=== PATIENT | male | born 1955 | race Caucasian/White ===

== ENCOUNTER → 2018-04-20 08:02 | Outpatient (CLI) | payer OTHER, SELFPAY ==
--- NOTE | 2018-04-20 | DI.US.S_ITS ---
PROCEDURE: US ABD AORTA ANEURYSM SCREEN INDICATIONS: SCREENING TECHNIQUE: Real time scanning was performed of the aorta and iliac arteries, with image documentation. COMPARISON: None. FINDINGS: Aorta: Proximal aortic diameter measures 2.2 cm. Mid-aorta measures 1.3 cm. Distal aortic diameter is 1.2 cm. Iliac arteries: Right common iliac artery measures 0.7 cm. Left common iliac artery measures 0.6 cm. Incidental note is made of a diffusely nodular liver, with a heterogeneous appearance. IMPRESSION: Negative for aneurysm. Diffuse heterogeneity is noted of the liver, with a nodular appearance. Suspicion for metastatic disease is raised. Followup with liver protocol CT or MRI is now suggested, as clinically appropriate (assuming that there is no contraindication). Note: Findings and recommendations relayed to Dr. Mccabe via office staff, Lora, at 10:45 AM [place] time on April 20, 2018. Dr. Mccabe will call back if there are any questions. Dictated by: Sean Mendoza M.D. on 04/20/2018 at 9:42 Approved by: Sean Mendoza M.D. on 04/20/2018 at 9:46
== END ==
PROVIDERS: PCP Family Medicine; Visit Provider Family Medicine
DX: Z13.6 Encounter for screening for cardiovascular disorders (principal); K76.9 Liver disease, unspecified
CPT/HCPCS: 76706

== ENCOUNTER → 2018-04-26 10:23 | Outpatient (CLI) | payer OTHER, SELFPAY ==
[2018-04-26 11:21] LABS: BUN Creatinine Ratio 25.6 (6-22); Blood Urea Nitrogen 23 mg/dL (9-20); Calcium 9.6 mg/dL (8.4-10.2); Carbon Dioxide 30 mmol/L (22-32); Chloride 95 mmol/L (98-107); Estimated Glomerular Filt Rate > 60.0 mL/min (>60); Glucose 257 mg/dL (80-110); HEMOLYSIS < 15 (0-50); Potassium 4.3 mmol/L (3.4-5.1); Sodium 137 mmol/L (137-145)
== END ==
PROVIDERS: PCP Family Medicine; Visit Provider Family Medicine
DX: K76.89 Other specified diseases of liver (principal)
CPT/HCPCS: 36415; 80048

== ENCOUNTER → 2018-04-28 10:36 | Outpatient (CLI) | payer OTHER, SELFPAY ==
--- NOTE | 2018-04-28 | DI.CT.S_ITS ---
PROCEDURE: CT ABDOMEN WWO PELVIS W INDICATIONS: Liver lesions seen on prior ultrasound. TECHNIQUE: After the administration of oral contrast, 5 mm thick sections acquired from the diaphragms to the iliac crests. After the administration of intravenous contrast, 5 mm thick sections acquired from the diaphragms to the symphysis. 5 mm thick coronal and sagittal reformats were acquired. For radiation dose reduction, the following was used: automated exposure control, adjustment of mA and/or kV according to patient size. COMPARISON: [facility], US, US ABD AORTA ANEURYSM SCREEN, 04/20/2018, 8:26. FINDINGS: Image quality: Excellent. ABDOMEN: Lung bases: There is mild atelectasis or scarring in the lung bases. Heart size is normal. Solid organs: There are innumerable hypoattenuating mass lesions demonstrated throughout the liver with associated peripheral enhancement. In addition, there is also confluent enhancing mass within segment 6 of the inferior right hepatic lobe measuring up to approximately 8.5 x 5.7 cm. The findings are consistent with metastatic disease. Within the head and body of the pancreas, there is a hypoenhancing mass measuring 3.5 x 1.7 x 3.8 cm in dimension with indistinct margins. There is associated distal pancreatic atrophy and distal ductal dilatation measuring up to 0.6 cm. The mass demonstrates encasement and narrowing of the left gastric artery. There is also encasement and narrowing of the splenic vein. The findings are consistent with pancreatic adenocarcinoma. The gallbladder appears within normal limits. Biliary system is non-dilated. Spleen is normal in size and enhancement. No adrenal nodules. Both kidneys are normal in size. No hydronephrosis or nephrolithiasis. Bowel and peritoneum: Stomach, small and large bowel loops are normal in caliber and wall thickness. No free fluid or air. Nodes and vessels: No retroperitoneal or mesenteric adenopathy by size criteria. Aorta and inferior vena are normal in caliber. Miscellaneous: No ventral hernias. PELVIS: Genitourinary: Bladder wall thickness is normal. Miscellaneous: No inguinal hernias or adenopathy. Bones: No suspicious bony lesions. No vertebral body compression fractures. IMPRESSION: 1. Innumerable peripherally enhancing mass lesions demonstrated throughout the liver consistent with metastatic disease. 2. Hypoenhancing pancreatic mass with associated distal pancreatic duct dilatation and atrophy as well as encasement of the left gastric artery and splenic vein. The findings are consistent with pancreatic adenocarcinoma. Findings discussed with Dr. Mccabe on 04/28/18 at 11:55 AM. Dictated by: Carlos Dsouza M.D. on 04/28/2018 at 11:50 Approved by: Carlos Dsouza M.D. on 04/28/2018 at 12:04
== END ==
PROVIDERS: PCP Family Medicine; Visit Provider Family Medicine
DX: K76.89 Other specified diseases of liver (principal); K86.9 Disease of pancreas, unspecified
CPT/HCPCS: 74178; Q9967

== ENCOUNTER → 2018-05-01 09:32 | Outpatient (CLI) | payer OTHER, SELFPAY ==
--- NOTE | 2018-05-01 | DI.CT.S_ITS ---
PROCEDURE: CT CHEST W CON INDICATIONS: PANCREATIC CANCER TECHNIQUE: After the administration of intravenous contrast, 5 mm thick sections acquired from the pulmonary apices to the posterior costophrenic angles. 7 mm thick coronal and sagittal MIP reformats were acquired. For radiation dose reduction, the following was used: automated exposure control, adjustment of mA and/or kV according to patient size. COMPARISON: [facility], CT, CT ABDOMEN WWO PELVIS W, 04/28/2018, 10:46. FINDINGS: Image quality: Excellent. Lungs and pleura: Scattered subsegmental scarring/atelectasis. No acute consolidation. No pleural effusions or pneumothorax. Central and peripheral airways are patent and normal in caliber. Mediastinum: Heart size is normal. Calcified coronary artery disease No pericardial effusion. No mediastinal or hilar adenopathy by size criteria. Thoracic aorta and central pulmonary arteries are normal in size. Esophagus is normal in caliber. No hiatal hernia. Bones and chest wall: No suspicious bony lesions. No vertebral body compression fractures. No axillary or supraclavicular adenopathy by size criteria. Thyroid gland negative. Abdomen: Innumerable hepatic metastases as better seen on the dedicated CT abdomen pelvis dated yesterday. Previously described pancreatic mass not entirely included on the study. IMPRESSION: No evidence of pulmonary metastatic disease. Scattered subsegmental scarring/atelectasis. No acute consolidation. Innumerable hepatic metastases as before. Dictated by: Nelson Levi M.D. on 05/01/2018 at 9:54 Approved by: Nelson Levi M.D. on 05/01/2018 at 10:01
== END ==
PROVIDERS: PCP Family Medicine; Visit Provider Family Medicine
DX: C25.9 Malignant neoplasm of pancreas, unspecified (principal); C78.7 Secondary malignant neoplasm of liver and intrahepatic bile duct
CPT/HCPCS: 71260; Q9967

== ENCOUNTER → 2018-05-03 09:33 | Outpatient (CLI) | payer OTHER, SELFPAY ==
[2018-05-03 10:37] LABS: BUN Creatinine Ratio 22.9 (6-22); Blood Urea Nitrogen 16 mg/dL (9-20); Calcium 9.1 mg/dL (8.4-10.2); Carbon Dioxide 27 mmol/L (22-32); Chloride 99 mmol/L (98-107); Estimated Glomerular Filt Rate > 60.0 mL/min (>60); Glucose 144 mg/dL (80-110); HEMOLYSIS < 15 (0-50); Potassium 4.3 mmol/L (3.4-5.1); Sodium 136 mmol/L (137-145)
== END ==
PROVIDERS: PCP Family Medicine; Visit Provider Family Medicine
DX: K76.89 Other specified diseases of liver (principal)
CPT/HCPCS: 36415; 80048; 99212; G0463

== ENCOUNTER 2018-05-09 06:29 | Day surgery (SDC) | payer OTHER, SELFPAY ==
[2018-05-08 14:37] VITALS: BMI 23.8
[2018-05-09] VITALS (8 sets, daily range): BP systolic 90–156; BP diastolic 55–82; PULSE 73–88; RESP 12–20; TEMP 36.3–36.7; O2SAT 96–99; BMI 23.8
--- NOTE | 2018-05-09 | DI.RAD.S_ITS ---
PROCEDURE: XR CHEST 1V INDICATIONS: port placement TECHNIQUE: One view of the chest was acquired. COMPARISON: [facility], CT, CT CHEST W CON, 05/01/2018, 9:38. FINDINGS: Surgical changes and devices: There is a Port-A-Cath on the left a with the tip in the area of brachiocephalic confluence. Lungs and pleura: Left basilar opacity is likely atelectasis. No pleural effusions or pneumothorax. Mediastinum: Mediastinal contours appear normal. Heart size is normal. Bones and chest wall: No suspicious bony lesions. Overlying soft tissues appear unremarkable. IMPRESSION: The tip of the Port-A-Cath is at the brachiocephalic confluence. No pneumothorax. Dictated by: Joce Valdez M.D. on 05/09/2018 at 11:05 Approved by: Joce Valdez M.D. on 05/09/2018 at 11:07
[2018-05-09] MEDS: LACTATED RINGERS 1,000 ML 42 ML IV (07:25)
--- NOTE | 2018-05-09 07:30 | PM.PREOP ---
Pre-operative Note Interval Note History & Physical reviewed/Exam performed by Physician: Yes Changes to H&P: No H&P completed within 30 days and has changed as indicated here:: Patient seen and examined in the preoperative area. History and physical examination as documented within the last week is on the chart and has not changed. He wished to proceed with systemic chemotherapy at the recommendation of the medical oncology service. We will therefore plan port placement today as previously discussed. Consent is on the chart.
[2018-05-09] MEDS: CEFAZOLIN 2 GM/100 ML FROZ.PIGGY IV (07:50)
--- NOTE | 2018-05-09 08:06 | SUR.OPER ---
Supine on padded OR bed, head on pillow, arm padded and tucked at side, legs uncrossed, safety belt at thigh, tape over blanket over lower legs .
[2018-05-09] MEDS: LIDOCAINE 1% 20 ML INJ INJ (08:23)
[2018-05-09] MEDS: SODIUM CHLORIDE 0.9% FLUSH 10 ML IV (08:24)
--- NOTE | 2018-05-09 08:59 | P.OP_ITS ---
Operative Date/Time/Diagnoses Date of procedure: 05/09/18 Time of procedure: 08:50 Pre-op diagnosis: Pancreatic cancer metastatic to liver requiring long-term IV access for chemotherapy Post-op diagnosis: same Procedure & Clinicians Procedure: Placement of tunneled central venous port device via left subclavian approach Same procedure as scheduled: Yes Indications: 62-year-old male who recently presented with vague abdominal symptoms and was subsequently diagnosed with widely metastatic tumor most likely of pancreatic origin on imaging. He has elected for chemotherapy. He requires long-term IV access to facilitate treatment. Port-A-Cath is recommended. Surgeon: Gurinder Riddle Click Yes if Unassisted: Yes Anesthesia Type: General Operative Notes Findings: 1. Tunneled central venous port device in left subclavian position with tip of the catheter in the distal superior vena cava by fluoroscopy 2. Easily accessible left infraclavicular subcutaneous port device noted to aspirate and flush easily 3. No evidence of pneumothorax with catheter in good position on postoperative chest x-ray Closure Type: primary Specimen(s): none sent Implants & Drains: Nine Mauritian standard size tunneled power port device in left subclavian position Applied: catheter (See above) Estimated Blood Loss (mL): 10 Blood products transfused: none Procedure in detail: After obtaining informed consent the patient was brought to the operating room placed supine on the table. After satisfactory induction of anesthesia the neck and chest were prepped and draped in usual sterile fashion. SCOAP time out was performed per standard protocol. Patient was placed in Trendelenburg position. 1% plain lidocaine was injected in the skin and subcutaneous tissue at the left infraclavicular region for postoperative analgesia. Introduce a needle was placed percutaneously below the clavicle in the left subclavian vein was easily accessed on the 1st attempt. Guidewire threaded easily and was confirmed by fluoroscopy to be in the right heart. Fifteen scalpel blade was used to create transverse skin incision along the anterior chest wall inferior to the guidewire insertion site. Patient was returned to supine position. Hemostasis was achieved with the Bovie, and the dissection was taken down through the subcutaneous tissue to the pectoralis fascia. Blunt dissection was then used to create a subcutaneous pocket just large enough to accommodate the port device. The catheter was previously attached to the port device itself with the locking mechanism and flushed prior to its insertion with saline. Port was placed in the subcutaneous pocket and the catheter was brought subcutaneously to exit at the guidewire insertion site using the tunneling device. Under fluoroscopic examination the length of the catheter was estimated so that the tip would come to rest at the junction of the superior vena cava and right atrium. Catheter was cut at exactly 20 cm from the port. Under direct fluoroscopic visualization the venous dilator and sheath were inserted via sterile Seldinger technique over the guidewire into the central venous system. Guidewire and dilator were removed as a single unit. Catheter was threaded distally through the sheath and the sheath was removed. Fluoroscopy confirmed the tip of the catheter to be in good position. Under direct visualization the port was accessed with a straight Quesada needle and noted to aspirate and flush easily with saline. Port was secured to the pectoralis fascia with 2 individual interrupted 3 0 Prolene suture. Wound was irrigated and noted to be hemostatic. Subcutaneous tissue was reapproximated with interrupted 3 0 Vicryl suture. Skin was closed in a subcuticular fashion with 4 0 Monocryl suture. Dermal adhesive was applied to the skin. The port was once again accessed percutaneously with a straight Quesada needle and noted to aspirate and flush easily with saline. This procedure was repeated a 2nd time with the injection of 2000 units of heparin. Anesthesia was reversed and patient extubated in the operating room. He was taken recovery in stable condition. Postoperative chest x-ray is as above. Complications: none Condition: stable Disposition: PACU Plan for aftercare: 1. Discharge home 2. Follow up with medical oncology for chemotherapy as scheduled
--- NOTE | 2018-05-09 10:04 | SUR.PHASEII ---
0935: Re-checked pt's glucose, CBG 107.
== END 2018-05-09 09:48 | disposition home or self-care (01) ==
PROVIDERS: PCP Family Medicine; Visit Provider Surgery
PROC: (CPT 36561; principal; 2018-05-09 07:45)
DX: C25.9 Malignant neoplasm of pancreas, unspecified (principal); Z45.2 Encounter for adjustment and management of vascular access device; E11.9 Type 2 diabetes mellitus without complications; E78.5 Hyperlipidemia, unspecified; I10 Essential (primary) hypertension; Z79.84 Long term (current) use of oral hypoglycemic drugs
CPT/HCPCS: 36561; 71045; 76000; C1788; J0690; J1100; J1644; J2704

== ENCOUNTER → 2018-05-11 11:12 | Outpatient (CLI) | payer OTHER, SELFPAY ==
[2018-05-11 12:26] LABS: Platelet Count 247 X10^3/uL (150-400)
[2018-05-11 12:43] LABS: INR 1.1 (0.9-1.3); Prothrombin Time 12.8 SECONDS (10.1-12.7)
== END ==
PROVIDERS: PCP Family Medicine; Visit Provider Internal Medicine Hematology & Oncology
DX: C25.9 Malignant neoplasm of pancreas, unspecified (principal)
CPT/HCPCS: 36415; 85049; 85610

== ENCOUNTER 2018-05-12 07:27 | Day surgery (SDC) | payer OTHER, SELFPAY ==
[2018-05-12] VITALS (17 sets, daily range): BP systolic 95–129; BP diastolic 52–78; PULSE 72–96; RESP 10–19; TEMP 36.4–37.1; O2SAT 94–99; BMI 23.6
--- NOTE | 2018-05-12 | DI.CT.S_ITS ---
PROCEDURE: CT BIOPSY LIVER Sedation analgesia for 15 minutes. INDICATIONS: LIVER LENSIONS TECHNIQUE: The indications, alternatives, benefits, risks, and possible complications of the procedure were communicated to the patient. Informed written consent from the patient was obtained and placed in the chart. Continuous EKG and hemodynamic monitoring was started by trained personnel. The patient was brought to the CT suite and securities consultant spiral CT imaging was performed with localization grid. The appropriate site for percutaneous access to the biopsy target was marked, was prepped and draped sterilely, and was infused with local anaesthesia. Under CT guidance, a core biopsy trocar and needle set was advanced to the biopsy target, and specimen(s) were obtained. The trocar and needle were then removed, and the patient was sent for post-procedure monitoring. COMPARISON: None. FINDINGS: Biopsy site: Left lobe liver met Needle: 18 gauge biopsy needle with introducer trocar. Number of passes: 2 Medications: 1% lidocaine for local anaesthesia. IV Fentanyl and Versed for conscious sedation for 15 minutes (see nursing record). Complications: None. IMPRESSION: Successful CT-guided biopsy of left lobe liver metastatic lesion. Dictated by: Kentrell Thomas M.D. on 05/12/2018 at 9:59 Approved by: Kentrell Thomas M.D. on 05/12/2018 at 10:01
--- NOTE | 2018-05-12 | PATH_ITS ---
[facility] Accession Number: [id number] . 01 Material submitted: . LIVER . 02 Diagnosis: Liver, Core Needle Biopsies: Well differentiated neuroendocrine tumor, Grade 2 (G2). -4-6 mitoses per 10 high-powered carmona. -Ki-67 index of 15-20%. -No loss of expression of mismatch repair proteins (MLH1, MSH2, MSH6 or PMS2) Please see comment. JRL/05/18/2018 . 02 Comment: The immunophenotype in this neuroendocrine neoplasm is compatible with the clinical impression of a primary pancreatic tumor; however, the overall immunohistochemical expression pattern is non-specific and metastasis from a different site, including gastrointestinal or lung can not be excluded based on the immunophenotype alone. Clinical and radiologic correlation is required. . As part of routine quality and reliability engineer, Dr. Rice and Dr. Jonas also reviewed this case and agree with the diagnosis of neuroendocrine tumor. Dr. Aranda called [facility] to discuss the results on 05/17/18 and spoke with GAVINO Cooper on 05/18/18. . References: Kkdavis Arthur. Classification and pathology of gastroenteropancreatic neuroendocrine neoplasms. Endocrine-Related Cancer. 2010. 18(S1), S1-S16. . 02 Electronically signed: . Lorena Aranda MD, Pathologist NPI- [id number] . 01 Gross description: . Received in formalin are two core biopsies of canas-white translucent tissue (length-1.9 cm and 1.5 cm, diameter-0.1 cm). Entirely submitted in cassette A1. ([id number]) /MRV . 02 Microscopic: . Immunohistochemical stains were performed to characterize the cells of interest. The control stains showed appropriate reactivity. . RESULTS: CK7: Negative CK20: Few positive cells CDX2: Negative Villin: Positive, brush border pattern Chromogranin: Positive Synaptophysin: Positive TTF-1: Negative PAX8: Negative SATB2: Variably positive. Ki-67: 10-20% of cells positive. MLH1: Intact nuclear expression. MSH2: Intact nuclear expression. MSH6: Intact nuclear expression. PMS2: Intact nuclear expression. . Interpretation: The strong uniform positivity for chromogranin and synaptophysin is consistent with a neuroendocrine neoplasm. The immunophenotype in this neoplasm is compatible with the clinical impression of a primary pancreatic tumor; however, the overall expression pattern is non-specific and metastasis from a gastrointestinal or lung primary can not be excluded based on this immunophenotype. Clinical and radiologic correlation is required. . No loss of nuclear expression of MMR proteins: low probability of microsatellite instability-high (MSI-H). *These results should not be considered in isolation, and clinical correlation with genetic counseling is recommended to assess the need for germline testing. . * This test was developed and its performance characteristics determined by [employer]. It has not been cleared or approved by the U.S. Food and Drug Administration. The FDA has determined that such clearance or approval is not necessary. This test is used for clinical purposes. It should not be regarded as investigational or for research. . 02 Pathologist provided ICD-10: C22.9 . 02 CPT . 528640, C75763, [id number] Performed at: 01 [facility] [address] [facility], [place], [place] [id number] MD Carlos Rayo MD Phone: [phone] Performed at: [address] [place], [place] [id number] MD Lorena Aranda MD Phone: [phone]
[2018-05-12] MEDS: fentaNYL 100 MCG/2 ML INJ 50 MCG IV ×2 (09:03→09:18)
[2018-05-12] MEDS: MIDAZOLAM 2 MG/2 ML VIAL IV (09:03)
--- NOTE | 2018-05-12 09:38 | PC.NURSE ---
Transferred pt to PACU via stretcher and handed off report to Gurinder CRANDALL. Pt alert and oriented, pt denies pain and reports needs met.
[2018-05-12 11:44] LABS: Hematocrit 35.7 % (41-53)
--- NOTE | 2018-05-12 12:40 | SUR.PHASEII ---
DR BLUM IN TO SEE AND SPEAK WITH PT AND . PT DENIES ANY PAIN OR DISCOMFORT, DRESSING REMAINS DRY AND INTACT, PT TOLERATING PO FLUIDS AND A SNACK, PT AND EXPRESSED READINESS TO GO HOME, D/C INSTRUCTIONS REVIEWED WITH PT AND WITH VERBALIZED UNDERSTANDING. PT D/C HOME WITH .
== END 2018-05-12 12:47 ==
PROVIDERS: Radiology Diagnostic Radiology; PCP Family Medicine; Visit Provider Internal Medicine Hematology & Oncology
PROC: BF25ZZZ Computerized Tomography (CT Scan) of Liver (ICD-10-PCS; CPT 47000; principal; 2018-05-12 08:30)
DX: R16.0 Hepatomegaly, not elsewhere classified (principal); C25.9 Malignant neoplasm of pancreas, unspecified; E11.9 Type 2 diabetes mellitus without complications; I10 Essential (primary) hypertension; E78.00 Pure hypercholesterolemia, unspecified; Z87.891 Personal history of nicotine dependence
CPT/HCPCS: 36415; 47000; 77012; 85014; J2250; J3010

== ENCOUNTER → 2018-06-06 07:38 | Outpatient (CLI) | payer OTHER, SELFPAY ==
--- NOTE | 2018-06-06 | DI.MRI.S_ITS ---
PROCEDURE: MR LUMBAR SPINE WO/W CON INDICATIONS: Other malignant neuroendocrine tumors TECHNIQUE: Noncontrast sagittal T1 spin echo and T2 fast spin echo, sagittal STIR, post-Gadolinium axial T1 spin echo with fat saturation through the thoracic and lumbar spines, with additional T2 fast spin echo and post-contrast axial T1 spin echo with fat saturation sequences acquired through levels of suspected cord compression. COMPARISON: [facility], CT, CT ABDOMEN WWO PELVIS W, 04/28/2018, 10:46. [facility], NM, NM PET CT FUSION SKULL 2 THIGH, 05/10/2018, 16:00. FINDINGS: Image quality: Excellent. Bones: There is abnormal signal and enhancement in L3 and L4 vertebral bodies suspicious for metastatic disease. The L3 lesion measures 1.5 x 2.0 cm. The L4 lesion measures 2.2 x 3.6 cm. Osseous lesions also present in iliac bones bilaterally demonstrating abnormal enhancement, suspicious for metastasis. For example, a couple of lesions in the right iliac bone demonstrate hypointense T1 and hyperintense T2 signals with abnormal enhancement measuring 1.8 cm and 7 mm, respectively. There is a 1.2 x 1.6 cm lesion in the left iliac bone with abnormal signal and enhancement enhancement. Spinal cord: Visualized spinal cord is normal in size and signal. Conus medullaris is at L1-L2. There is degenerative disc disease, most prostat L4-L5 and L5-S1 with posterior disc bulge and posterior central disc protrusion causing mild central canal stenosis and [id number] bilateral foraminal stenosis. No enhancing epidural mass lesions. Paraspinous soft tissues: No paravertebral masses. Gallbladder is distended. IMPRESSION: 1. Osseous lesions involving the L3 and L4 vertebral bodies and iliac bones bilaterally demonstrates abnormal signal and enhancement, consistent with metastasis. 2. Degenerative changes in lumbar spine is noted. Dictated by: Joce Valdez M.D. on 06/06/2018 at 9:17 Approved by: Joce Valdez M.D. on 06/06/2018 at 9:31
== END ==
PROVIDERS: PCP Family Medicine; Visit Provider Internal Medicine Hematology & Oncology
DX: C7A.8 Other malignant neuroendocrine tumors (principal); M47.816 Spondylosis without myelopathy or radiculopathy, lumbar region
CPT/HCPCS: 72158

== ENCOUNTER 2018-06-21 12:08 | Emergency (ER) | payer OTHER, SELFPAY ==
[2018-06-21 12:11] VITALS: BP 122/73; PULSE 83; RESP 16; TEMP 36.5; O2SAT 98; BMI 23.2
== END 2018-06-21 14:06 | disposition left against medical advice (07) ==
PROVIDERS: Emergency Provider Emergency Medicine; PCP Family Medicine
DX: Z53.21 Procedure and treatment not carried out due to patient leaving prior to being seen by health care provider (principal)
CPT/HCPCS: 99282

== ENCOUNTER 2018-06-21 16:02 | Emergency (ER) | payer OTHER, SELFPAY ==
[2018-06-21 16:16] VITALS: BP 119/70; PULSE 87; RESP 18; O2SAT 97; BMI 23.2
[2018-06-21 16:49] LABS: Add Manual Diff / Slide Review NO; Basophils Absolute Auto 100 /uL (0-100); Basophils Percent Auto 0.7 % (0-2); Eosinophils Absolute Auto 0 /uL (0-450); Eosinophils Percent Auto 0.4 % (2-4); Hematocrit 36.5 % (41-53); INR 1.2 (0.9-1.3); Lymphocytes Absolute Auto 1400 /uL (1100-4500); Lymphocytes Percent Auto 19.2 % (25-40); Mean Corpuscular HGB Conc 32.9 % (30-36); Mean Corpuscular Hemoglobin 28.6 PG (26-34); Mean Corpuscular Volume 86.9 fL (80-100); Monocytes Absolute Auto 600 /uL (0-900); Monocytes Percent Auto 8.5 % (3-14); Neutrophils Absolute Auto 5100 /uL (1500-7000); Neutrophils Percent Auto 71.2 % (50-75); Platelet Count 331 X10^3/uL (150-400); Prothrombin Time 13.5 SECONDS (10.1-12.7); Red Cell Distribution Width 13.7 % (11.6-14.8); White Blood Cell Count 7.2 X10^3/uL (4.5-11.0)
[2018-06-21 16:52] LABS: PTT Partial Thromboplastin Tim 28 SECONDS (26.4-36.2)
[2018-06-21 16:55] LABS: Alanine Aminotransferase 52 IU/L (21-72); Albumin 4.4 g/dL (3.5-5.0); Albumin Globulin Ratio 1.1 (1.0-2.8); Alkaline Phosphatase 217 U/L (38-126); Aspartate Aminotransferase 40 IU/L (17-59); Bilirubin Total 0.7 mg/dL (0.2-1.3); Blood Urea Nitrogen 21 mg/dL (9-20); Calcium 9.5 mg/dL (8.4-10.2); Carbon Dioxide 26 mmol/L (22-32); Chloride 96 mmol/L (98-107); Estimated Glomerular Filt Rate > 60.0 mL/min (>60); Globulin 3.9 g/dL (1.7-4.1); Glucose 174 mg/dL (80-110); HEMOLYSIS < 15 (0-50); Lipase 40 U/L (23-300); Potassium 4.3 mmol/L (3.4-5.1); Sodium 135 mmol/L (137-145); Total Protein 8.3 g/dL (6.3-8.2)
[2018-06-21 18:21] VITALS: BP 119/66; PULSE 78; RESP 16; O2SAT 96
--- NOTE | 2018-06-21 18:41 | DI.CT.S_ITS ---
PROCEDURE: CT ABDOMEN PELVIS W CON INDICATIONS: new Dx Panreatic CA, severe pain in LLQ, spreading periumbil TECHNIQUE: After the administration of intravenous contrast, 5 mm thick sections acquired from the diaphragm to the symphysis. 5 mm coronal and sagittal reformats were acquired. For radiation dose reduction, the following was used: automated exposure control, adjustment of mA and/or kV according to patient size. COMPARISON: [facility], CT, CT ABDOMEN WWO PELVIS W, 04/28/2018, 10:46. [facility], CT, CT BIOPSY LIVER, 05/12/2018, 8:40. FINDINGS: Image quality: Excellent. ABDOMEN: Lung bases: Lung bases are clear. Heart size is normal. Coronary artery calcifications are present. Solid organs: Extensive diffuse metastatic disease within the left and right lobes of liver as before. Gallbladder is distended otherwise unremarkable. No cholelithiasis or gallbladder wall thickening. Biliary system is non dilated. Redemonstration of hypoenhancing pancreatic mass, most likely representing adenocarcinoma. No interval change. Spleen is normal in size and enhancement. No adrenal nodules. Kidneys demonstrate normal size and enhancement, without hydronephrosis. Peritoneum and bowel: Large amount of stool seen within the colon. No definite bowel obstruction or transition point. The appendix is within normal limits Rectum is grossly unremarkable No free fluid or air. Nodes and vessels: No retroperitoneal or mesenteric adenopathy by size criteria. Aorta and inferior vena cava are normal in size. Miscellaneous: No ventral hernias. PELVIS: Genitourinary: Bladder wall thickness is normal. Miscellaneous: No inguinal hernias or adenopathy. Bones: No suspicious bony lesions. No vertebral body compression fractures. IMPRESSION: Diffuse hepatic metastases as before. Hypoattenuating pancreatic mass in keeping with adenocarcinoma, unchanged appearance. Large amount of stool suggestive of constipation. No specific evidence of bowel obstruction seen at this time although if the patient's symptoms do not improve, continued surveillance with abdominal series radiographs could be performed. Normal appendix. Dictated by: Nelson Levi M.D. on 06/21/2018 at 19:18 Approved by: Nelson Levi M.D. on 06/21/2018 at 19:24
[2018-06-21] MEDS: SODIUM CHLORIDE 0.9% 1,000 ML 1000 ML IV (19:15)
[2018-06-21 19:30] VITALS: BP 103/60; PULSE 78; RESP 14; O2SAT 99
--- NOTE | 2018-06-21 19:53 | ED.ABDPAIN ---
HPI - Abdominal Pain General Chief Complaint: Abdominal Pain Stated Complaint: SEVERE ABD PAIN Time Seen by Provider: 06/21/18 18:17 Source: patient and family Mode of arrival: ambulatory Limitations: no limitations History of Present Illness HPI narrative: 62-year-old male nonsmoker with relatively new diagnosis of pancreatic cancer presents with severe left lower quadrant pain which has since become a bit less intense but has spread throughout his lower abdomen. He has persistent nausea but denies any vomiting. Denies any fever or chills. Thus far the treatment for his cancer has been octreotide and he has not received any chemotherapy radiation or surgeries. His pain is worse with motion and improves with rest. He has had trouble staying well hydrated and has become constipated on a few occasions. He reports trouble keeping his weight on MD complaint: abdominal pain Onset (ago): hour(s) Pain Consistency: constant Location: LLQ Severity: severe Severity scale (1-10): 10 Quality: stabbing and aching Radiation: none Relieving factors: nothing Exacerbating factors: nothing Associated symptoms: denies other symptoms Related Data Home Medications Medication Instructions Recorded Confirmed aspirin 81 mg tablet,delayed 81 mg PO DAILY 05/03/18 06/21/18 release atorvastatin 40 mg tablet 40 mg PO DAILY 05/03/18 06/21/18 metformin ER 1,000 mg 1,000 mg PO BID 05/03/18 06/21/18 tablet,extended release 24hr lidocaine-prilocaine 1 applic TOPICAL DIRECTED 06/21/18 06/21/18 lisinopril-hydrochlorothiazide 0.5 tab PO DAILY 06/21/18 06/21/18 Previous Rx's Medication Instructions Recorded docusate sodium [Colace] 100 mg PO BID #14 cap 05/09/18 oxycodone 5 mg PO Q4-6H PRN #14 tab 05/09/18 ondansetron 4 mg PO TID-QID PRN #20 tab 06/21/18 Allergies Allergy/AdvReac Type Severity Reaction Status Date / Time No Known Drug Allergies Allergy Verified 06/21/18 16:19 Review of Systems Constitutional Denies chills, Denies fever(s), Denies lethargy and Denies weakness Eyes Denies change in vision, Denies eye discharge, Denies irritation and Denies loss of vision ENT Ears, Nose, Mouth, and Throat: Denies change in voice, Denies neck pain and Denies sore throat Cardiovascular Denies chest pain, Denies irregular heart rhythm, Denies lightheadedness, Denies palpitations, Denies dyspnea, Denies dyspnea on exertion and Denies orthopnea Respiratory Denies cough, Denies dyspnea, Denies dyspnea on exertion and Denies wheezing Gastrointestinal Gastrointestinal: Reports abdominal pain, Denies change in bowel habits, Denies diarrhea, Reports nausea and Denies vomiting Genitourinary Denies hematuria, Denies flank pain, Denies urinary incontinence and Denies urinary urgency Musculoskeletal Denies neck pain Integumentary/Breasts Denies pruritus, Denies erythema, Denies rash and Denies wounds Neurologic Denies confusion, Denies loss of vision and Denies weakness Psychiatric Denies anxiety, Denies confusion, Denies depression, Denies homicidal ideation and Denies suicidal ideation Endocrine Denies palpitations Hematologic/Lymphatic Denies easy bruising Allergic/Immunologic Denies wheezing PFSH Medical History Hyperlipidemia (Acute) Hypertension (Acute) Primary pancreatic cancer with metastasis to other site (Acute) Weight loss (Acute) Type 2 diabetes mellitus (Resolved) Surgical History History of colonoscopy (Acute) Family History Brother Diabetes mellitus Hypertension Brother Testicular cancer Social History marital status: household members: spouse occupational status: employed Smoking Status: Former smoker alcohol intake: former substance use type: does not use Family History Brother Diabetes mellitus Hypertension Brother Testicular cancer Social History marital status: household members: spouse occupational status: employed Smoking Status: Former smoker alcohol intake: former substance use type: does not use Exam Narrative Exam Narrative: GENERAL: 62-year-old appears younger than stated age This is a well-nourished, well-developed patient, in mild distress. HEAD: Atraumatic. Normocephalic. No temporal or scalp tenderness. EYES: Pupils equal round and reactive. Extraocular motions intact. No scleral icterus. No injection or drainage. ENT: Nose without bleeding, purulent drainage or septal hematoma. Throat without erythema, tonsillar hypertrophy or exudate. Uvula midline. Airway patent. NECK: Trachea midline. No JVD or lymphadenopathy. Supple, nontender, no meningeal signs. CARDIOVASCULAR: Regular rate and rhythm without murmurs, gallops, or rubs. RESPIRATORY: Clear to auscultation. Breath sounds equal bilaterally. No wheezes, rales, or rhonchi. GASTROINTESTINAL: Abdomen soft, moderate tenderness in left lower quadrant, nondistended. No hepato-splenomegaly, or palpable masses. No guarding. EXTREMITIES: No clubbing, cyanosis, or edema. No joint tenderness, effusion, or edema noted. BACK: Nontender without deformity or crepitance. No flank tenderness. NEURO: AOx3. SKIN: No rash or erythema. Initial Vital Signs Initial Vital Signs: Vital Signs Pulse Rate 87 06/21/18 16:16 Respiratory Rate 18 06/21/18 16:16 Blood Pressure 119/70 06/21/18 16:16 Pulse Oximetry 97 06/21/18 16:16 Course Orders Ordered: Discontinued Medications Sodium Chloride (Normal Saline 0.9%) 1,000 mls @ 1,000 mls/hr IV BOLUS ONE Stop: 06/21/18 19:39 Last Infusion: 06/21/18 21:00 Dose: 0 mls/hr Admin: 06/21/18 19:15 Dose: 1,000 mls/hr Ondansetron HCl (Zofran Odt Prepack) 1 bottle MISC SEEINSTR ONE Stop: 06/21/18 20:52 Last Admin: 06/21/18 20:59 Dose: 1 bottle Vital Signs - 8 hr 06/21/18 16:16 06/21/18 18:21 06/21/18 19:30 Pulse Rate 87 78 78 Respiratory Rate 18 16 14 Blood Pressure 119/70 Blood Pressure [Right Arm] 119/66 103/60 Pulse Oximetry 97 96 99 MDM - Abdominal Pain Differential Diagnosis Differential diagnosis: Likely abdominal pain Lab Data Result diagrams: 06/21/18 16:27 06/21/18 16:27 Lab Results 06/21/18 06/21/18 06/21/18 Range/Units 16:27 16:27 16:27 WBC 7.2 (4.5-11.0) X10^3/uL RBC 4.20 L (4.5-5.9) X10^6/uL Hgb 12.0 L (13.5-17.5) g/dL Hct 36.5 L (41-53) % MCV 86.9 (80-100) fL MCH 28.6 (26-34) PG MCHC 32.9 (30-36) % RDW 13.7 (11.6-14.8) % Plt Count 331 (150-400) X10^3/uL Neut % (Auto) 71.2 (50-75) % Lymph % (Auto) 19.2 L (25-40) % [place] % (Auto) 8.5 (3-14) % Eos % (Auto) 0.4 L (2-4) % Baso % (Auto) 0.7 (0-2) % Neut # (Auto) 5100 (8179-6688) /uL Lymph # (Auto) 1400 (4069-4581) /uL [place] # (Auto) 600 (0-900) /uL Eos # (Auto) 0 (0-450) /uL Baso # (Auto) 100 (0-100) /uL PT 13.5 H (10.1-12.7) SECONDS INR 1.2 (0.9-1.3) APTT 28 (26.4-36.2) SECONDS Sodium 135 L (137-145) mmol/L Potassium 4.3 (3.4-5.1) mmol/L Chloride 96 L (98-107) mmol/L Carbon Dioxide 26 (22-32) mmol/L BUN 21 H (9-20) mg/dL Creatinine 0.70 (0.66-1.25) mg/dL Estimated GFR > 60.0 (>60) mL/min BUN/Creatinine Ratio 30.0 H (6-22) Glucose 174 H (80-110) mg/dL Calcium 9.5 (8.4-10.2) mg/dL Total Bilirubin 0.7 (0.2-1.3) mg/dL AST 40 (17-59) IU/L ALT 52 (21-72) IU/L Alkaline Phosphatase 217 H (38-126) U/L Total Protein 8.3 H (6.3-8.2) g/dL Albumin 4.4 (3.5-5.0) g/dL Globulin 3.9 (1.7-4.1) g/dL Albumin/Globulin Ratio 1.1 (1.0-2.8) Lipase 40 (23-300) U/L Point of care testing: Urine Dip Bedside Urine Glucose Negative Bedside Urine Bilirubin - Negative Bedside Urine Ketone - Negative Urine Specific [place] 1.015 Bedside Urine Occult Blood - Negative Bedside Urine pH 5.5 Bedside Urine Protein - Negative Bedside Urine Urobilinogen - Negative Bedside Urine Nitrite - Negative Bedside Urine Leukocytes - Negative Esterase Imaging Data CT scan - abdomen: Radiologist's impression: [address] [address] [address] Scan Report Signed Patient: Kali Landeros EMR#: [id number] : 4Acct:[id number] Age/Sex: 62 / MDate of Service: 06/21/18 Loc: ED Accession Number: [id number] Procedure: CT abdomen pelvis w con Ordering Provider: Jermaine Carbone D.O. PROCEDURE: CT ABDOMEN PELVIS W CON INDICATIONS: new Dx Panreatic CA, severe pain in LLQ, spreading periumbil TECHNIQUE: After the administration of intravenous contrast, 5 mm thick sections acquired from the diaphragm to the symphysis. 5 mm coronal and sagittal reformats were acquired. For radiation dose reduction, the following was used: automated exposure control, adjustment of mA and/or kV according to patient size. COMPARISON: [facility], CT, CT ABDOMEN WWO PELVIS W, 04/28/2018, 10:46. [facility], CT, CT BIOPSY LIVER, 05/12/2018, 8:40. FINDINGS: Image quality: Excellent. ABDOMEN: Lung bases: Lung bases are clear. Heart size is normal. Coronary artery calcifications are present. Solid organs: Extensive diffuse metastatic disease within the left and right lobes of liver as before. Gallbladder is distended otherwise unremarkable. No cholelithiasis or gallbladder wall thickening. Biliary system is non dilated. Redemonstration of hypoenhancing pancreatic mass, most likely representing adenocarcinoma. No interval change. Spleen is normal in size and enhancement. No adrenal nodules. Kidneys demonstrate normal size and enhancement, without hydronephrosis. Peritoneum and bowel: Large amount of stool seen within the colon. No definite bowel obstruction or transition point. The appendix is within normal limits Rectum is grossly unremarkable No free fluid or air. Nodes and vessels: No retroperitoneal or mesenteric adenopathy by size criteria. Aorta and inferior vena cava are normal in size. Miscellaneous: No ventral hernias. PELVIS: Genitourinary: Bladder wall thickness is normal. Miscellaneous: No inguinal hernias or adenopathy. Bones: No suspicious bony lesions. No vertebral body compression fractures. IMPRESSION: Diffuse hepatic metastases as before. Hypoattenuating pancreatic mass in keeping with adenocarcinoma, unchanged appearance. Large amount of stool suggestive of constipation. No specific evidence of bowel obstruction seen at this time although if the patient's symptoms do not improve, continued surveillance with abdominal series radiographs could be performed. Normal appendix. Dictated by: Nelson Levi M.D. on 06/21/2018 at 19:18 Approved by: Nelson Levi M.D. on 06/21/2018 at 19:24 Discharge Plan Departure Patient Disposition: Home Clinical Impression: Abdominal pain Qualifiers: Abdominal location: generalized Qualified Code(s): R10.84 - Generalized abdominal pain Constipation Qualifiers: Constipation type: unspecified constipation type Qualified Code(s): K59.00 - Constipation, unspecified Discharge Date/Time: 06/21/18 21:02 Interventions: ED Discharge Assessment Last Done: 06/21/18 21:01 Instructions: Constipation Activity Restrictions/Additional Instructions: 1. Stay active 2. Return to your normal diet as much as possible 3. Stay well hydrated 4. A combination of over the counter laxitives including Dulcolax (stimulant laxative) Magnesium Citrate (pulls water into stool) Colace (stool softener) Prescriptions: New ondansetron 4 mg tablet,disintegrating 4 mg PO TID-QID PRN (Reason: nausea and vomiting) Qty: 20 RF: 0 No Action atorvastatin 40 mg tablet 40 mg PO DAILY RF: 0 aspirin [Adult Aspirin Regimen] 81 mg tablet,delayed release (DR/EC) 81 mg PO DAILY RF: 0 metformin 1,000 mg tablet extended release 24hr 1,000 mg PO BID RF: 0 docusate sodium [Colace] 100 mg capsule 100 mg PO BID Qty: 14 RF: 1 oxycodone 5 mg tablet 5 mg PO Q4-6H PRN (Reason: pain) Qty: 14 RF: 0 lisinopril-hydrochlorothiazide 20-12.5 mg tablet 0.5 tab PO DAILY RF: 0 lidocaine-prilocaine 2.5-2.5 % cream 1 applic topical DIRECTED RF: 0 Referrals: Dominic Mccabe MD [Primary Care Provider] -
[2018-06-21 20:16] VITALS: BP 111/65; PULSE 77; O2SAT 99
[2018-06-21] MEDS: ONDANSETRON 4 MG ODT PREPACK 1 BOTTLE MISC (20:59)
[2018-06-21 21:01] VITALS: BP 123/67; PULSE 81; RESP 14; O2SAT 99
== END 2018-06-21 21:02 | disposition home or self-care (01) ==
PROVIDERS: Emergency Medicine; Emergency Provider Emergency Medicine; Family Provider Family Medicine; PCP Family Medicine
DX: R10.84 Generalized abdominal pain (principal); K59.00 Constipation, unspecified; Z53.21 Procedure and treatment not carried out due to patient leaving prior to being seen by health care provider
CPT/HCPCS: 74177; 80053; 81003; 83690; 85025; 85610; 85730; 96360; 96361; 99282; 99283; 99285; Q9967

== ENCOUNTER 2018-07-20 11:17 | Emergency (ER) | payer OTHER, SELFPAY ==
[2018-07-20 11:25] VITALS: BP 125/69; PULSE 98; RESP 16; TEMP 36.9; O2SAT 99; BMI 23.5
[2018-07-20 11:36] VITALS: BP 125/69; PULSE 98; RESP 16; TEMP 36.9; O2SAT 99; BMI 23.5
[2018-07-20 11:55] LABS: Add Manual Diff / Slide Review NO; Basophils Absolute Auto 100 /uL (0-100); Basophils Percent Auto 0.7 % (0-2); Eosinophils Absolute Auto 0 /uL (0-450); Eosinophils Percent Auto 0.2 % (2-4); Hematocrit 32.6 % (41-53); Lymphocytes Absolute Auto 1200 /uL (1100-4500); Mean Corpuscular HGB Conc 33.6 % (30-36); Mean Corpuscular Hemoglobin 28.8 PG (26-34); Mean Corpuscular Volume 85.8 fL (80-100); Monocytes Absolute Auto 1200 /uL (0-900); Monocytes Percent Auto 12.3 % (3-14); Neutrophils Absolute Auto 6900 /uL (1500-7000); Neutrophils Percent Auto 73.8 % (50-75); Platelet Count 267 X10^3/uL (150-400); Red Cell Distribution Width 14.3 % (11.6-14.8); White Blood Cell Count 9.4 X10^3/uL (4.5-11.0)
[2018-07-20 12:05] LABS: INR 1.3 (0.9-1.3); Prothrombin Time 15.5 SECONDS (10.1-12.7)
[2018-07-20 12:12] LABS: Alanine Aminotransferase 38 IU/L (21-72); Albumin 3.8 g/dL (3.5-5.0); Albumin Globulin Ratio 1.2 (1.0-2.8); Alkaline Phosphatase 302 U/L (38-126); Aspartate Aminotransferase 45 IU/L (17-59); Bilirubin Total 0.8 mg/dL (0.2-1.3); Blood Urea Nitrogen 21 mg/dL (9-20); Calcium 8.8 mg/dL (8.4-10.2); Carbon Dioxide 24 mmol/L (22-32); Chloride 92 mmol/L (98-107); Creatine Kinase 41 U/L (55-170); Estimated Glomerular Filt Rate > 60.0 mL/min (>60); Globulin 3.2 g/dL (1.7-4.1); Glucose 203 mg/dL (80-110); HEMOLYSIS < 15 (0-50); Lipase 25 U/L (23-300); Potassium 4.6 mmol/L (3.4-5.1); Sodium 128 mmol/L (137-145)
--- NOTE | 2018-07-20 12:15 | ED.CHESTPAIN ---
HPI - Chest Pain General Chief Complaint: Chest Pain Stated Complaint: CHEST PAIN Time Seen by Provider: 07/20/18 11:29 Source: patient Mode of arrival: ambulatory Limitations: no limitations History of Present Illness HPI narrative: 62-year-old male comes the emergency department with complaint of chest pain patient states it has been there for 2 or 3 days, pretty much constant. It is sort of left substernal. But when he is not taking his oxycodone I will radiate across the chest. States it is more positional lying on his left side is significantly better than on the other side. He states walking actually improves it and moving around. Taking big breath he can feel it. He does not feel short of breath, he has not had any lightheadedness or syncope. He has been more tired and fatigued for the past week. Five weeks ago he got his octreotide injection for his pancreatic cancer he felt good for about 3 or 4 weeks and then over the last week he has been slowly worsening. Patient has been sleeping a lot. He was supposed to get the octreotide drip a week ago and did have it today but they were waiting for PET scan results. His PET scan noted that he has significant number of metastases 1 of which is adjacent to the heart phrenic area. He does have hypertension, dyslipidemia and diabetes he has never had a heart catheterization or stent placed. His mom did at the age 65 from an [place], he quit smoking about 15 years ago, he is not drinking any alcohol occasional THC recently. Related Data Home Medications Medication Instructions Recorded Confirmed aspirin 81 mg tablet,delayed 81 mg PO DAILY 05/03/18 07/20/18 release atorvastatin 40 mg tablet 40 mg PO QPM 05/03/18 07/20/18 metformin ER 1,000 mg 1,000 mg PO BID 05/03/18 07/20/18 tablet,extended release 24hr lidocaine-prilocaine 1 applic TOPICAL DIRECTED 06/21/18 07/20/18 lisinopril-hydrochlorothiazide 0.5 tab PO DAILY 06/21/18 07/20/18 docusate sodium [Colace] 100 mg PO BID PRN 07/20/18 07/20/18 Previous Rx's Medication Instructions Recorded oxycodone 5 mg PO Q4-6H PRN #14 tab 05/09/18 ondansetron 4 mg PO TID-QID PRN #20 tab 06/21/18 Allergies Allergy/AdvReac Type Severity Reaction Status Date / Time No Known Drug Allergies Allergy Verified 06/21/18 16:19 Review of Systems Review of Systems ROS Unobtainable: All systems reviewed & are unremarkable except as noted in HPI and below Constitutional Denies body ache(s), Denies chills, Reports fatigue, Denies fever(s), Denies lethargy, Denies night sweats and Denies weakness ENT Ears, Nose, Mouth, and Throat: Denies neck pain Cardiovascular Reports chest pain, Reports chest pain at rest, Denies chest pain with activity (improves with ambulation), Denies diaphoresis, Denies syncope, Denies rapid heart rate, Denies edema, Denies irregular heart rhythm, Denies lightheadedness, Denies palpitations, Denies dyspnea, Denies dyspnea on exertion and Denies orthopnea Respiratory Denies change in phlegm color, Denies chest congestion, Denies cough, Denies excessive phlegm production, Reports pain on inspiration, Denies dyspnea, Denies dyspnea on exertion, Denies stridor and Denies wheezing Gastrointestinal Gastrointestinal: Denies abdominal pain, Denies change in bowel habits, Reports constipation, Denies diarrhea, Denies nausea and Denies vomiting Genitourinary Denies dysuria, Denies urinary frequency, Denies urinary hesitancy and Denies urinary incontinence Musculoskeletal Denies back pain and Denies neck pain Neurologic Denies syncope and Denies weakness Endocrine Reports fatigue and Denies palpitations Allergic/Immunologic Denies wheezing PFSH Medical History Diabetes (Chronic) Port-A-Cath in place (Chronic) Hyperlipidemia (Acute) Hypertension (Acute) Primary pancreatic cancer with metastasis to other site (Acute) Weight loss (Acute) Type 2 diabetes mellitus (Resolved) Surgical History History of colonoscopy (Acute) Family History Brother Diabetes mellitus Hypertension Brother Testicular cancer Mother No problems noted. Social History marital status: household members: spouse occupational status: employed Smoking Status: Former smoker alcohol intake: former substance use type: does not use Family History Brother Diabetes mellitus Hypertension Brother Testicular cancer Mother No problems noted. Social History marital status: household members: spouse occupational status: employed Smoking Status: Former smoker alcohol intake: former substance use type: does not use Exam Narrative Exam Narrative: GENERAL: Alert and oriented x three, well-nourished, well-appearing male in no acute distress. HEENT: Head normocephalic, atraumatic, EOMI, pupils reactive, face symmetric, moist mucous membranes NECK: Supple, full range of motion CARDIOVASCULAR: Regular rate and rhythm without murmurs, rubs or gallops. Nontender to palpation. Patient has a catheter at the left anterior chest. RESPIRATORY: Breath sounds equal bilaterally, no wheezes rales or rhonchi. ABDOMEN: Soft, nontender. Normoactive bowel sounds all 4 quadrants. No guarding or rebound, rigidity, no mass : No CVA tenderness EXTREMITIES: Normal range of motion, no clubbing or edema. Neurovascularly intact NEUROLOGICAL: Cranial nerves II through XII grossly intact. Moving all extremities SKIN: Warm, dry, no petechiae, no rashes or lesions. Initial Vital Signs Initial Vital Signs: Vital Signs Temperature 98.5 F 07/20/18 11:25 Pulse Rate 98 H 07/20/18 11:25 Respiratory Rate 16 07/20/18 11:25 Blood Pressure 125/69 07/20/18 11:25 Pulse Oximetry 99 07/20/18 11:25 Course Orders Ordered: ED Orders 07/20/18 11:24 EKG-12 Lead Stat 07/20/18 11:45 Complete Blood Count AUTO DIFF Stat Comprehensive Metabolic Panel Stat Lipase Stat Partial Thromboplastin Time Stat Prothrombin Time INR Stat Troponin & CK Cardiac Panel Stat 07/20/18 12:38 CT angio chest PE protocol Stat Vital Signs - 8 hr 07/20/18 11:25 07/20/18 11:36 07/20/18 13:54 Temperature 98.5 F 98.5 F Pulse Rate 98 H 98 H 81 Respiratory Rate 16 16 24 Blood Pressure 125/69 125/69 127/64 Pulse Oximetry 99 99 98 MDM - Chest Pain Lab Data Attestation: I reviewed the patient's lab results. Result diagrams: 07/20/18 11:45 07/20/18 11:45 Lab Results 07/20/18 07/20/18 07/20/18 Range/Units 11:45 11:45 11:45 WBC 9.4 (4.5-11.0) X10^3/uL RBC 3.80 L (4.5-5.9) X10^6/uL Hgb 11.0 L (13.5-17.5) g/dL Hct 32.6 L (41-53) % MCV 85.8 (80-100) fL MCH 28.8 (26-34) PG MCHC 33.6 (30-36) % RDW 14.3 (11.6-14.8) % Plt Count 267 (150-400) X10^3/uL Neut % (Auto) 73.8 (50-75) % Lymph % (Auto) 13.0 L (25-40) % [place] % (Auto) 12.3 (3-14) % Eos % (Auto) 0.2 L (2-4) % Baso % (Auto) 0.7 (0-2) % Neut # (Auto) 6900 (2246-7605) /uL Lymph # (Auto) 1200 (1855-4027) /uL [place] # (Auto) 1200 H (0-900) /uL Eos # (Auto) 0 (0-450) /uL Baso # (Auto) 100 (0-100) /uL PT 15.5 H (10.1-12.7) SECONDS INR 1.3 (0.9-1.3) APTT 78 H* D (26.4-36.2) SECONDS Sodium 128 L (137-145) mmol/L Potassium 4.6 (3.4-5.1) mmol/L Chloride 92 L (98-107) mmol/L Carbon Dioxide 24 (22-32) mmol/L BUN 21 H (9-20) mg/dL Creatinine 0.70 (0.66-1.25) mg/dL Estimated GFR > 60.0 (>60) mL/min BUN/Creatinine Ratio 30.0 H (6-22) Glucose 203 H (80-110) mg/dL Calcium 8.8 (8.4-10.2) mg/dL Total Bilirubin 0.8 (0.2-1.3) mg/dL AST 45 (17-59) IU/L ALT 38 (21-72) IU/L Alkaline Phosphatase 302 H (38-126) U/L Total Creatine Kinase 41 L (55-170) U/L CK-MB (CK-2) TNP CK-MB (CK-2) Rel Index TNP Troponin I < 0.012 (0.01-0.034) ng/mL Total Protein 7.0 (6.3-8.2) g/dL Albumin 3.8 (3.5-5.0) g/dL Globulin 3.2 (1.7-4.1) g/dL Albumin/Globulin Ratio 1.2 (1.0-2.8) Lipase 25 (23-300) U/L Imaging Data CT chest angio: Attestation: I personally reviewed and interpreted this imaging study as follows: Radiologist's impression: Kali Landeros 62 M 1955 [place] [address] CT Scan Report Signed Patient: Kali Landeros EMR#: [id number] : [id number]:[id number] Age/Sex: 62 / MDate of Service: 07/20/18 Loc: ED Accession Number: [id number] Procedure: CT angio chest PE protocol Ordering Provider: Nohelia Lopez D.O. PROCEDURE: CT ANGIO CHEST PE PROTOCOL INDICATIONS: chest pain, known metastatic pancreatic cancer, no sob TECHNIQUE: After the administration of intravenous contrast, 2 mm thick sections acquired from the pulmonary apices to the posterior costophrenic angles. 3-dimensional maximum intensity projection (MIP) coronal and sagittal reformats were then acquired through the thorax. For radiation dose reduction, the following was used: automated exposure control, adjustment of mA and/or kV according to patient size. COMPARISON: [facility], CT, CT CHEST W CON, 05/01/2018, 9:38. FINDINGS: Image quality: Diagnostic. Pulmonary arteries: Pulmonary arteries are normal in size, and demonstrate no intraluminal filling defects to suggest central pulmonary embolism. Lungs and pleura: Elevation of left diaphragm is identified, which may represent a diaphragmatic hernia. Areas of atelectasis are identified along the posterior left costophrenic angle. There is also mild posterior right costophrenic angle atelectasis. No focal consolidation, effusion, or pneumothorax is evident. Mediastinum: Heart size is normal, without pericardial effusion. Coronary and aortic atherosclerosis is present. No mediastinal or hilar adenopathy. Thoracic aorta is normal in caliber and enhancement. Esophagus is normal in caliber, without hiatal hernia. Bones and chest wall: No suspicious bony lesions. Ribs and thoracic spine appear intact throughout. Thyroid gland is not enlarged or well evaluated. No axillary or supraclavicular adenopathy. Mild bilateral gynecomastia is noted. There is a left-sided Port-A-Cath central line identified position within the superior vena cava. The tip is not well seen related to overlying contrast. Abdomen: The liver is enlarged and diffusely heterogeneous with numerous lesions scattered throughout the liver, grossly similar to the exam from 05/01/18 there appears to be intrahepatic and extrahepatic biliary dilatation the. The ankle is not included on this study. IMPRESSION: 1. No evidence of pulmonary embolism. 2. Bibasilar atelectasis. 3. Unchanged elevated left diaphragm. 4. Enlarged abnormal liver is similar to the prior examination and is suspicious for metastatic disease. Dictated by: Alphonso Renae M.D. on 07/20/2018 at 12:09 Approved by: Alphonso Renae M.D. on 07/20/2018 at 12:14 ECG Data Attestation: I personally reviewed and interpreted this ECG as follows: Interpretation: Sinus rhythm frequent PVCs, rate of 78 P are 140 QRS of 92 QTC of 384. Q [address] No significant [address] changes. This is the EKG from 10:51 a.m. from today in the Oncology Clinic. Repeat EKG in the emergency department at 11:24 a.m. shows multiple PVCs, rate of 77 P are 150 QRS of 94 and QTC of 386. No ST elevation or depression appreciated. Patient does have Q-waves as noted in his prior EKG. [facility] Narrative Medical decision making narrative: Patient has had 2-3 days of chest pain that is been fairly constant, EKG shows some PVCs, troponin is negative. Patient has some anemia PTT was elevated but patient's labs were drawn from his port which has been accessed multiple times and likely heparinized prior to blood draw so likely the cause of his elevated PTT. patient does have some hyponatremia he has been slowly drifting down this could be contributing to some of his fatigue, BUN slightly elevated, glucose is elevated at 203, alk phos appears to be slightly elevated from prior on 06/21/2018 as well as total CK. CT chest does not show any PE, or obvious major changes there was some concerning changes for metastatic disease but patient has known metastatic disease had a recent PET scan with multiple Mets in a variety of areas including the chest. Discussed with patient my suspicion for an actual cardiac cause although he does have risk factors his lower. He does not wish to do stress testing or further evaluation at this time, he will follow up with his primary care but based on his comorbidities he prefers to be more focused on his cancer treatment at this time. Discharge Plan Departure Patient Disposition: Home Clinical Impression: Atypical chest pain, Primary malignant neoplasm of pancreas with metastasis to other site Discharge Date/Time: 07/20/18 13:54 Interventions: ED Discharge Assessment Last Done: 07/20/18 13:54 Instructions: DI for Atypical Chest Pain Activity Restrictions/Additional Instructions: Follow-up with your physician in the next 2-3 days for recheck. Continue home medications as prescribed. Return to the emergency department for worsening symptoms, new fevers greater than 100.4 F, new shortness of breath, worsening chest pain or pressure, persistent vomiting, lightheadedness or passing out or other new or concerning symptoms Prescriptions: No Action atorvastatin 40 mg tablet 40 mg PO QPM RF: 0 aspirin [Adult Aspirin Regimen] 81 mg tablet,delayed release (DR/EC) 81 mg PO DAILY RF: 0 metformin 1,000 mg tablet extended release 24hr 1,000 mg PO BID RF: 0 oxycodone 5 mg tablet 5 mg PO Q4-6H PRN (Reason: pain) Qty: 14 RF: 0 lisinopril-hydrochlorothiazide 20-12.5 mg tablet 0.5 tab PO DAILY RF: 0 lidocaine-prilocaine 2.5-2.5 % cream 1 applic topical DIRECTED RF: 0 ondansetron 4 mg tablet,disintegrating 4 mg PO TID-QID PRN (Reason: nausea and vomiting) Qty: 20 RF: 0 docusate sodium [Colace] 100 mg capsule 100 mg PO BID PRN (Reason: stool softener) RF: 0 Referrals: Dominic Mccabe MD [Primary Care Provider] -
[2018-07-20 12:21] LABS: PTT Partial Thromboplastin Tim 78 SECONDS (26.4-36.2)
[2018-07-20 12:22] LABS: Troponin I < 0.012 ng/mL (0.01-0.034)
--- NOTE | 2018-07-20 12:24 | ED_ITS ---
HPI - Chest Pain General Chief Complaint: Chest Pain Stated Complaint: CHEST PAIN Time Seen by Provider: 07/20/18 11:29 Source: patient Mode of arrival: ambulatory Limitations: no limitations History of Present Illness HPI narrative: 62-year-old male comes the emergency department with complaint of chest pain patient states it has been there for 2 or 3 days, pretty much constant. It is sort of left substernal. But when he is not taking his oxycodone I will radiate across the chest. States it is more positional lying on his left side is significantly better than on the other side. He states walking actually improves it and moving around. Taking big breath he can feel it. He does not feel short of breath, he has not had any lightheadedness or syncope. He has been more tired and fatigued for the past week. Five weeks ago he got his octreotide injection for his pancreatic cancer he felt good for about 3 or 4 weeks and then over the last week he has been slowly worsening. Patient has been sleeping a lot. He was supposed to get the octreotide drip a week ago and did have it today but they were waiting for PET scan results. His PET scan noted that he has significant number of metastases 1 of which is adjacent to the heart phrenic area. He does have hypertension, dyslipidemia and diabetes he has never had a heart catheterization or stent placed. His mom did at the age 65 from an MS, he quit smoking about 15 years ago, he is not drinking any alcohol occasional THC recently. Related Data Home Medications Medication Instructions Recorded Confirmed aspirin 81 mg tablet,delayed 81 mg PO DAILY 05/03/18 07/20/18 release atorvastatin 40 mg tablet 40 mg PO QPM 05/03/18 07/20/18 metformin ER 1,000 mg 1,000 mg PO BID 05/03/18 07/20/18 tablet,extended release 24hr lidocaine-prilocaine 1 applic TOPICAL DIRECTED 06/21/18 07/20/18 lisinopril-hydrochlorothiazide 0.5 tab PO DAILY 06/21/18 07/20/18 docusate sodium [Colace] 100 mg PO BID PRN 07/20/18 07/20/18 Previous Rx's Medication Instructions Recorded oxycodone 5 mg PO Q4-6H PRN #14 tab 05/09/18 ondansetron 4 mg PO TID-QID PRN #20 tab 06/21/18 Allergies Allergy/AdvReac Type Severity Reaction Status Date / Time No Known Drug Allergies Allergy Verified 06/21/18 16:19 Review of Systems Review of Systems ROS Unobtainable: All systems reviewed & are unremarkable except as noted in HPI and below Constitutional Denies body ache(s), Denies chills, Reports fatigue, Denies fever(s), Denies lethargy, Denies night sweats and Denies weakness ENT Ears, Nose, Mouth, and Throat: Denies neck pain Cardiovascular Reports chest pain, Reports chest pain at rest, Denies chest pain with activity (improves with ambulation), Denies diaphoresis, Denies syncope, Denies rapid heart rate, Denies edema, Denies irregular heart rhythm, Denies lightheadedness, Denies palpitations, Denies dyspnea, Denies dyspnea on exertion and Denies orthopnea Respiratory Denies change in phlegm color, Denies chest congestion, Denies cough, Denies excessive phlegm production, Reports pain on inspiration, Denies dyspnea, Denies dyspnea on exertion, Denies stridor and Denies wheezing Gastrointestinal Gastrointestinal: Denies abdominal pain, Denies change in bowel habits, Reports constipation, Denies diarrhea, Denies nausea and Denies vomiting Genitourinary Denies dysuria, Denies urinary frequency, Denies urinary hesitancy and Denies urinary incontinence Musculoskeletal Denies back pain and Denies neck pain Neurologic Denies syncope and Denies weakness Endocrine Reports fatigue and Denies palpitations Allergic/Immunologic Denies wheezing PFSH Medical History Diabetes (Chronic) Port-A-Cath in place (Chronic) Hyperlipidemia (Acute) Hypertension (Acute) Primary pancreatic cancer with metastasis to other site (Acute) Weight loss (Acute) Type 2 diabetes mellitus (Resolved) Surgical History History of colonoscopy (Acute) Family History Brother Diabetes mellitus Hypertension Brother Testicular cancer Mother No problems noted. Social History marital status: household members: spouse occupational status: employed Smoking Status: Former smoker alcohol intake: former substance use type: does not use Family History Brother Diabetes mellitus Hypertension Brother Testicular cancer Mother No problems noted. Social History marital status: household members: spouse occupational status: employed Smoking Status: Former smoker alcohol intake: former substance use type: does not use Exam Narrative Exam Narrative: GENERAL: Alert and oriented x three, well-nourished, well- appearing male in no acute distress. HEENT: Head normocephalic, atraumatic, EOMI, pupils reactive, face symmetric, moist mucous membranes NECK: Supple, full range of motion CARDIOVASCULAR: Regular rate and rhythm without murmurs, rubs or gallops. Nontender to palpation. Patient has a catheter at the left anterior chest. RESPIRATORY: Breath sounds equal bilaterally, no wheezes rales or rhonchi. ABDOMEN: Soft, nontender. Normoactive bowel sounds all 4 quadrants. No guarding or rebound, rigidity, no mass : No CVA tenderness EXTREMITIES: Normal range of motion, no clubbing or edema. Neurovascularly intact NEUROLOGICAL: Cranial nerves II through XII grossly intact. Moving all extremities SKIN: Warm, dry, no petechiae, no rashes or lesions. Initial Vital Signs Initial Vital Signs: Vital Signs Temperature 98.5 F 07/20/18 11:25 Pulse Rate 98 H 07/20/18 11:25 Respiratory Rate 16 07/20/18 11:25 Blood Pressure 125/69 07/20/18 11:25 Pulse Oximetry 99 07/20/18 11:25 Course Orders Ordered: ED Orders 07/20/18 11:24 EKG-12 Lead Stat 07/20/18 11:45 Complete Blood Count AUTO DIFF Stat Comprehensive Metabolic Panel Stat Lipase Stat Partial Thromboplastin Time Stat Prothrombin Time INR Stat Troponin & CK Cardiac Panel Stat 07/20/18 12:38 CT angio chest PE protocol Stat Vital Signs - 8 hr 07/20/18 11:25 07/20/18 11:36 07/20/18 13:54 Temperature 98.5 F 98.5 F Pulse Rate 98 H 98 H 81 Respiratory Rate 16 16 24 Blood Pressure 125/69 125/69 127/64 Pulse Oximetry 99 99 98 MDM - Chest Pain Lab Data Attestation: I reviewed the patient's lab results. Result diagrams: 07/20/18 11:45 07/20/18 11:45 Lab Results 07/20/18 07/20/18 07/20/18 Range/Units 11:45 11:45 11:45 WBC 9.4 (4.5-11.0) X10^3/uL RBC 3.80 L (4.5-5.9) X10^6/uL Hgb 11.0 L (13.5-17.5) g/dL Hct 32.6 L (41-53) % MCV 85.8 (80-100) fL MCH 28.8 (26-34) PG MCHC 33.6 (30-36) % RDW 14.3 (11.6-14.8) % Plt Count 267 (150-400) X10^3/uL Neut % (Auto) 73.8 (50-75) % Lymph % (Auto) 13.0 L (25-40) % Emmons % (Auto) 12.3 (3-14) % Eos % (Auto) 0.2 L (2-4) % Baso % (Auto) 0.7 (0-2) % Neut # (Auto) 6900 (3778-4856) /uL Lymph # (Auto) 1200 (3646-8975) /uL Emmons # (Auto) 1200 H (0-900) /uL Eos # (Auto) 0 (0-450) /uL Baso # (Auto) 100 (0-100) /uL PT 15.5 H (10.1-12.7) SECONDS INR 1.3 (0.9-1.3) APTT 78 H* D (26.4-36.2) SECONDS Sodium 128 L (137-145) mmol/L Potassium 4.6 (3.4-5.1) mmol/L Chloride 92 L (98-107) mmol/L Carbon Dioxide 24 (22-32) mmol/L BUN 21 H (9-20) mg/dL Creatinine 0.70 (0.66-1.25) mg/dL Estimated GFR > 60.0 (>60) mL/min BUN/Creatinine Ratio 30.0 H (6-22) Glucose 203 H (80-110) mg/dL Calcium 8.8 (8.4-10.2) mg/dL Total Bilirubin 0.8 (0.2-1.3) mg/dL AST 45 (17-59) IU/L ALT 38 (21-72) IU/L Alkaline Phosphatase 302 H (38-126) U/L Total Creatine Kinase 41 L (55-170) U/L CK-MB (CK-2) TNP CK-MB (CK-2) Rel Index TNP Troponin I < 0.012 (0.01-0.034) ng/mL Total Protein 7.0 (6.3-8.2) g/dL Albumin 3.8 (3.5-5.0) g/dL Globulin 3.2 (1.7-4.1) g/dL Albumin/Globulin Ratio 1.2 (1.0-2.8) Lipase 25 (23-300) U/L Imaging Data CT chest angio: Attestation: I personally reviewed and interpreted this imaging study as follows: Radiologist's impression: Kali Landeros 62 M 1955 [place] [address] CT Scan Report Signed Patient: Kali Landeros EMR#: [id number] : [id number]:[id number] Age/Sex: 62 / MDate of Service: 07/20/18 Loc: ED Accession Number: [id number] Procedure: CT angio chest PE protocol Ordering Provider: Nohelia Lopez D.O. PROCEDURE: CT ANGIO CHEST PE PROTOCOL INDICATIONS: chest pain, known metastatic pancreatic cancer, no sob TECHNIQUE: After the administration of intravenous contrast, 2 mm thick sections acquired from the pulmonary apices to the posterior costophrenic angles. 3-dimensional maximum intensity projection (MIP) coronal and sagittal reformats were then acquired through the thorax. For radiation dose reduction, the following was used: automated exposure control, adjustment of mA and/or kV according to patient size. COMPARISON: [facility], CT, CT CHEST W CON, 05/01/2018, 9:38. FINDINGS: Image quality: Diagnostic. Pulmonary arteries: Pulmonary arteries are normal in size, and demonstrate no intraluminal filling defects to suggest central pulmonary embolism. Lungs and pleura: Elevation of left diaphragm is identified, which may represent a diaphragmatic hernia. Areas of atelectasis are identified along the posterior left costophrenic angle. There is also mild posterior right costophrenic angle atelectasis. No focal consolidation, effusion, or pneumothorax is evident. Mediastinum: Heart size is normal, without pericardial effusion. Coronary and aortic atherosclerosis is present. No mediastinal or hilar adenopathy. Thoracic aorta is normal in caliber and enhancement. Esophagus is normal in caliber, without hiatal hernia. Bones and chest wall: No suspicious bony lesions. Ribs and thoracic spine appear intact throughout. Thyroid gland is not enlarged or well evaluated. No axillary or supraclavicular adenopathy. Mild bilateral gynecomastia is noted. There is a l eft-sided Port-A-Cath central line identified position within the superior vena cava. The tip is not well seen related to overlying contrast. Abdomen: The liver is enlarged and diffusely heterogeneous with numerous lesions scattered throughout the liver, grossly similar to the exam from 05/01/18 there appears to be intrahepatic and extrahepatic biliary dilatation the. The ankle is not inclu ded on this study. IMPRESSION: 1. No evidence of pulmonary embolism. 2. Bibasilar atelectasis. 3. Unchanged elevated left diaphragm. 4. Enlarged abnormal liver is similar to the prior examination and is suspicious for metastatic disease. Dictated by: Alphonso Renae M.D. on 07/20/2018 at 12:09 Approved by: Alphonso Renae M.D. on 07/20/2018 at 12:14 ECG Data Attestation: I personally reviewed and interpreted this ECG as follows: Interpretation: Sinus rhythm frequent PVCs, rate of 78 P are 140 QRS of 92 QTC of 384. Q [address] No significant [address] changes. This is the EKG from 10:51 a.m. from today in the Oncology Clinic. Repeat EKG in the emergency department at 11:24 a.m. shows multiple PVCs, rate of 77 P are 150 QRS of 94 and QTC of 386. No ST elevation or depression appreciated. Patient does have Q-waves as noted in his prior EKG. [facility] Narrative Medical decision making narrative: Patient has had 2-3 days of chest pain that is been fairly constant, EKG shows some PVCs, troponin is negative. Patient has some anemia PTT was elevated but patient's labs were drawn from his port which has been accessed multiple times and likely heparinized prior to blood draw so likely the cause of his elevated PTT. patient does have some hyponatremia he has been slowly drifting down this could be contributing to some of his fatigue, BUN slightly elevated, glucose is elevated at 203, alk phos appears to be slightly elevated from prior on 06/21/2018 as well as total CK. CT chest does not show any PE, or obvious major changes there was some concerning changes for metastatic disease but patient has known metastatic disease had a recent PET scan with multiple Mets in a variety of areas including the chest. Discussed with patient my suspicion for an actual cardiac cause although he does have risk factors his lower. He does not wish to do stress testing or further evaluation at this time, he will follow up with his primary care but based on his comorbidities he prefers to be more focused on his cancer treatment at this time. Discharge Plan Departure Patient Disposition: Home Clinical Impression: Atypical chest pain, Primary malignant neoplasm of pancreas with metastasis to other site Discharge Date/Time: 07/20/18 13:54 Interventions: ED Discharge Assessment Last Done: 07/20/18 13:54 Instructions: DI for Atypical Chest Pain Activity Restrictions/Additional Instructions: Follow-up with your physician in the next 2-3 days for recheck. Continue home medications as prescribed. Return to the emergency department for worsening symptoms, new fevers greater than 100.4 F, new shortness of breath, worsening chest pain or pressure, persistent vomiting, lightheadedness or passing out or other new or concerning symptoms Prescriptions: No Action atorvastatin 40 mg tablet 40 mg PO QPM RF: 0 aspirin [Adult Aspirin Regimen] 81 mg tablet,delayed release (DR/EC) 81 mg PO DAILY RF: 0 metformin 1,000 mg tablet extended release 24hr 1,000 mg PO BID RF: 0 oxycodone 5 mg tablet 5 mg PO Q4-6H PRN (Reason: pain) Qty: 14 RF: 0 lisinopril-hydrochlorothiazide 20-12.5 mg tablet 0.5 tab PO DAILY RF: 0 lidocaine-prilocaine 2.5-2.5 % cream 1 applic topical DIRECTED RF: 0 ondansetron 4 mg tablet,disintegrating 4 mg PO TID-QID PRN (Reason: nausea and vomiting) Qty: 20 RF: 0 docusate sodium [Colace] 100 mg capsule 100 mg PO BID PRN (Reason: stool softener) RF: 0 Referrals: Dominic Mccabe MD [Primary Care Provider] -
--- NOTE | 2018-07-20 12:38 | DI.CT.S_ITS ---
PROCEDURE: CT ANGIO CHEST PE PROTOCOL INDICATIONS: chest pain, known metastatic pancreatic cancer, no sob TECHNIQUE: After the administration of intravenous contrast, 2 mm thick sections acquired from the pulmonary apices to the posterior costophrenic angles. 3-dimensional maximum intensity projection (MIP) coronal and sagittal reformats were then acquired through the thorax. For radiation dose reduction, the following was used: automated exposure control, adjustment of mA and/or kV according to patient size. COMPARISON: [facility], CT, CT CHEST W [facility], 05/01/2018, 9:38. FINDINGS: Image quality: Diagnostic. Pulmonary arteries: Pulmonary arteries are normal in size, and demonstrate no intraluminal filling defects to suggest central pulmonary embolism. Lungs and pleura: Elevation of left diaphragm is identified, which may represent a diaphragmatic hernia. Areas of atelectasis are identified along the posterior left costophrenic angle. There is also mild posterior right costophrenic angle atelectasis. No focal consolidation, effusion, or pneumothorax is evident. Mediastinum: Heart size is normal, without pericardial effusion. Coronary and aortic atherosclerosis is present. No mediastinal or hilar adenopathy. Thoracic aorta is normal in caliber and enhancement. Esophagus is normal in caliber, without hiatal hernia. Bones and chest wall: No suspicious bony lesions. Ribs and thoracic spine appear intact throughout. Thyroid gland is not enlarged or well evaluated. No axillary or supraclavicular adenopathy. Mild bilateral gynecomastia is noted. There is a left-sided Port-A-Cath central line identified position within the superior vena cava. The tip is not well seen related to overlying contrast. Abdomen: The liver is enlarged and diffusely heterogeneous with numerous lesions scattered throughout the liver, grossly similar to the exam from 05/01/18 there appears to be intrahepatic and extrahepatic biliary dilatation the. The ankle is not included on this study. IMPRESSION: 1. No evidence of pulmonary embolism. 2. Bibasilar atelectasis. 3. Unchanged elevated left diaphragm. 4. Enlarged abnormal liver is similar to the prior examination and is suspicious for metastatic disease. Dictated by: Alphonso Renae M.D. on 07/20/2018 at 12:09 Approved by: Alphonso Renae M.D. on 07/20/2018 at 12:14
[2018-07-20 13:54] VITALS: BP 127/64; PULSE 81; RESP 24; O2SAT 98
== END 2018-07-20 13:54 | disposition home or self-care (01) ==
PROVIDERS: Emergency Provider Emergency Medicine; Family Provider Family Medicine; PCP Family Medicine
DX: R07.89 Other chest pain (principal); C25.9 Malignant neoplasm of pancreas, unspecified; R53.83 Other fatigue; C7A.8 Other malignant neuroendocrine tumors
CPT/HCPCS: 36415; 36592; 71275; 80053; 82550; 83690; 84484; 85025; 85610; 85730; 86316; 93005; 93010; 96401; 99215; 99283; 99285; J2353; Q9967

== ENCOUNTER → 2018-07-24 10:57 | Oncology outpatient (ONC) | payer OTHER, SELFPAY ==
--- NOTE | 2018-05-05 08:25 | ONC.CONS ---
History of Present Illness - Data of Consult Patient: new to practice Consult date: 05/05/18 Requesting Physician: Dominic Mccabe MD Primary Care Provider: Dominic Mccabe MD - Consult Narrative Reason for consult: Metastatic cancer, likely pancreatic Narrative: Kali Landeros is a 62 year old male with medical problems most notable for diabetes, hypertension, and hypercholesterolemia. Patient came in here today accompanied by his . Patient said that for the past 1-2 years, he has been having indigestion in the abdomen. Patient especially related that the abdominal discomfort usually gets worse when he laid down and feels better when sit up. In addition patient has noticed that his stamina has decreased and he gets tired more easily. Patient said that he used to weigh about 210 lb just about 1-2 years ago. He then started diet control to lose weight. But he noticed that he kept on losing weight since. He weighs 168 lb today. Patient went to see his primary care provider Dr. Dominic Mccabe. An ultrasound study on 04/20/2018 showed showed diffuse heterogeneity of the liver with a nodular appearance suspicious for metastatic disease. On CT scan of the abdomen and pelvis on 04/28/2018 showed innumerable peripherally enhancing mass lesions throughout the liver consistent with metastatic disease as well as hypoenhancing pancreatic mass with associated distal pancreatic duct dilation and atrophy as well as encasement of the left gastric artery and splenic vein. CT scan of the chest on 05/01/2018 showed no evidence of pulmonary metastatic disease. Tumor markers obtained on 05/01/2018 showed CEA 1.5 ng/ml, CA 19-9 63 U/ml, AFP 26.1 ng/ml. Other labs showed sodium 132, potassium 5.1, chloride 96, glucose 232, BUN 15, creatinine 0.82, calcium 9.1. He has already set up for PET scan next week. Patient also has already seen Dr. Gurinder Riddle for evaluation of port placement. Clinically, patient reported no headache but does report some ringing in the ears. Patient denies vision changes, denies chest pain but admits to exertion or shortness of breath. Patient denies any nausea or vomiting. He denies diarrhea. Patient has some constipation. He denies any pain in the bones. Home Medications and Allergies Home Medications Medication Instructions Recorded Confirmed Type aspirin 81 mg tablet,delayed 81 mg PO DAILY 05/03/18 05/05/18 History release atorvastatin 40 mg tablet 40 mg PO DAILY 05/03/18 05/05/18 History lisinopril 10 6.25 tab PO DAILY 05/03/18 05/05/18 History mg-hydrochlorothiazide 12.5 mg tablet metformin ER 1,000 mg 1,000 mg PO QPM 05/03/18 05/05/18 History tablet,extended release 24hr Allergies Allergy/AdvReac Type Severity Reaction Status Date / Time No Known Drug Allergies Allergy Verified 05/05/18 08:56 Medical History - Medical, Surgical, Family History Medical History: Medical History (Last Updated 05/05/18 @ 08:45 by Marina Billingsley MD) Hyperlipidemia Hypertension Primary pancreatic cancer with metastasis to other site Type 2 diabetes mellitus Surgical History: Surgical History (Last Reviewed 05/03/18 @ 09:49 by Gurinder Riddle MD) History of colonoscopy Family History: Family History (Last Updated 05/05/18 @ 08:59 by Marina Billingsley MD) Brother Diabetes mellitus Hypertension Brother Testicular cancer - Social History Smoking Status: Former smoker Smoking packs per day: 1 Years smoked: 30 Quit Date: 11/24/03 Substance Use Type: does not use Alcohol Intake: former Review of Systems All systems PM: reviewed and no additional remarkable complaints except as stated Exam Vital signs: Last Vital Signs Temp 98.2 F 05/05/18 08:54 Pulse 82 05/05/18 08:54 Resp 16 05/05/18 08:54 BP 126/77 05/05/18 08:54 Pulse Ox 99 05/05/18 08:54 ECOG 1 Narrative: Constitutional: WDWN, NAD, thin, well groomed, pleasant and cooperative, accompanied by his HEENT: NCAT, EOMI, PERRLA, anicteric sclera, no hearing difficulty; Neck: Supple, symmetrical, and tracheal midline; No palpable thyromegaly and no palpable lymph nodes. Respiratory: No use of accessory muscles. CTAB, no wheezes or rales or rubs. Cardiovascular: RRR, S1 and S2 normal, no murmurs gallops or rubs. No JVD. Abdomen: Soft, nontender, non-distended, bowel sounds normal. Liver palpable 5 cm below costal margin at MCL. No spenomegaly. Lower extremities: No palpable edema. Lymphatic: no palpable lymph nodes in the neck, axillae, or groins. Neurological: Awake and alert and oriented x3. CN II-XII grossly intact. No focal motor or sensory deficit. Psychiatric: Good judgment, good insight, normal affect, normal thought process, cooperative, no depression, no anxiety. Results - Labs Reviewed. See HPI. - Imaging CT scan - abdomen: report reviewed, image reviewed CT scan - chest: report reviewed, image reviewed US - abdomen: report reviewed Assessment and Plan (1) Pancreatic cancer metastasized to liver Problem details: 1. Presented with progressive weight loss, abdominal indigestion and fatigue for 1-2 years 2. Innumerable multiple liver lesions and a pancreatic head mass identifed on CT abdomen and pelvis on 04/28/2018. 3. CEA 1.5 ng/ml, CA 19-9 63 U/ml, AFP 26.1 ng/ml. Assessment: I talked with the patient and patient's . I showed them the CT scans on the computer screen. I explained to the patient that based on the available information, the most likely diagnosis is pancreatic cancer with liver metastasis. There is no evidence of metastasis to the chest. However we cannot exclude other possibilities for example hepatocellular carcinoma or extrahpatic cholangiocarcinoma. I talked with them that the most important first step is to obtain a tissue diagnosis if possible. I will try to set up the CT-guided biopsy as soon as possible. In addition I encouraged the patient to call Dr. Cruz Riddle for port placement. Plan: 1. CT-guided biopsy of the liver lesions as soon as possible Please send biopsy sample for OmniSeq too. 2. PET CT as schedueld for next week. 3. Port placement by Dr. Gurinder Riddle 4. RTC th 2-3 weeks (2) Diabetes mellitus, type [address] Dominic Mccabe at [facility]. (3) Hypertension Being followed by Dr. Dominic Mccabe at [facility].
[2018-05-05 08:54] VITALS: BP 126/77; PULSE 82; RESP 16; TEMP 36.8; O2SAT 99
--- NOTE | 2018-05-22 08:02 | PC.NURSE ---
PATH PROGRESS: Per Dr. Billingsley's order of 05/05/18, I faxed the OmniSeq request and associated paperwork to [facility] on Friday 05/19. I received an email from [facility] on Tuesday afternoon stating he received the request. (The reason for the delay in sending out the requisition is due to the fact that the biopsy sample that Dr. Billingsley wanted the test ran on, wasn't scheduled until 05/12/18. I also had to wait for the path report from the bx to come back before I could send out the test requisition.)
--- NOTE | 2018-05-25 11:31 | P.PNONC_ITS ---
PN -Subjective Interval history: On 05/09/2018 patient underwent port placement. On 05/11/2018 patient underwent PET scan. The PET scan showed a large mass in the posterior segment of the right hepatic lobe demonstrating abnormal FDG activity consistent with metastasis. Innumerable small liver lesions also has increased FDG activity consistent with metastasis. The pancreatic mass described on the comparison diagnostic CT scan is not well visualized on PET scan. There is mildly increased FDG activity in the area of the pancreatic head suspicious for primary neoplasm. There are foci of increased uptake in the L4 vertebral body and bilateral iliac bones. These changes suspicious for osseous metastasis. On 05/12/2018, patient underwent CT-guided liver core needle biopsy. The biopsy sample showed well-differentiated neuroendocrine tumor, grade 2 (G2). 4-6 mitosis per 10 high-powered carmona, Ki 67 index of 15-20%, no loss of expression of mismatch repair enzymes. Clinically patient reports no new signs or symptoms. He denies any night sweats, hot flashes, or wheezes. Patient also denies any diarrhea. Oncology History: Kali Landeros is a 62 year old male with medical problems most notable for diabetes, hypertension, and hypercholesterolemia. He endorses 1-2 years of indigestion, fatigue and weight loss. His weight decreased from 210 lb to 168 lb over 1-2 years ago. Patient went to see his primary care provider Dr. Dominic Mccabe. An ultrasound study on 04/20/2018 showed showed diffuse heterogeneity of the liver with a nodular appearance suspicious for metastatic disease. On CT scan of the abdomen and pelvis on 04/28/2018 showed innumerable peripherally enhancing mass lesions throughout the liver consistent with metastatic disease as well as hypo-enhancing pancreatic mass measuring 3.5 x 1.7 x 3.8 cm in dimension within the head and body with associated distal pancreatic duct dilation and atrophy as well as encasement of the left gastric artery and splenic vein. CT scan of the chest on 05/01/2018 showed no evidence of pulmonary metastatic disease. Tumor markers obtained on 05/01/2018 showed CEA 1.5 ng/ml, CA 19-9 63 U/ml, AFP 26.1 ng/ml. Other labs showed sodium 132, potassium 5.1, chloride 96, glucose 232, BUN 15, creatinine 0.82, calcium 9.1. Patient then was referred to Oncology for further evaluation and treatment. I saw the patient on 05/05/2018. - Patient Self-Reported Symptoms SR Constitution: Weight loss/gain SR Gastrointestinal issues: Change in bowel pattern, Constipation, Abdominal pain SR Genitourinary issues: Frequent urination - Additional ROS All systems PM: reviewed and no additional remarkable complaints except as stated Home Medications and Allergies Home Medications Medication Instructions Recorded Confirmed Type aspirin 81 mg tablet,delayed 81 mg PO DAILY 05/03/18 05/12/18 History release atorvastatin 40 mg tablet 40 mg PO DAILY 05/03/18 05/12/18 History lisinopril 10 6.25 tab PO DAILY 05/03/18 05/12/18 History mg-hydrochlorothiazide 12.5 mg tablet metformin ER 1,000 mg 1,000 mg PO BID 05/03/18 05/12/18 History tablet,extended release 24hr docusate sodium [Colace] 100 mg PO BID #14 cap 05/09/18 05/12/18 Rx oxycodone 5 mg PO Q4-6H PRN #14 tab 05/09/18 05/12/18 Rx Allergies Allergy/AdvReac Type Severity Reaction Status Date / Time No Known Drug Allergies Allergy Verified 05/12/18 08:38 Exam Vital signs: Last Vital Signs Temp 98.7 F 05/25/18 11:36 Pulse 83 05/25/18 11:36 Resp 16 05/25/18 11:36 BP 116/71 05/25/18 11:36 Pulse Ox 97 05/25/18 11:36 ECOG 1 Narrative: Constitutional: WDWN, NAD, thin, well groomed, pleasant and cooperative, accompanied by his HEENT: NCAT, EOMI, PERRLA, anicteric sclera, no hearing difficulty; Neck: Supple, symmetrical, and tracheal midline; No palpable thyromegaly and no palpable lymph nodes. Respiratory: No use of accessory muscles. CTAB, no wheezes or rales or rubs. Cardiovascular: RRR, S1 and S2 normal, no murmurs gallops or rubs. No JVD. Abdomen: Soft, nontender, non-distended, bowel sounds normal. Liver palpable 5 cm below costal margin at MCL. No spenomegaly. Lower extremities: No palpable edema. Lymphatic: no palpable lymph nodes in the neck, axillae, or groins. Neurological: Awake and alert and oriented x3. CN II-XII grossly intact. No focal motor or sensory deficit. Psychiatric: Good judgment, good insight, normal affect, normal thought process, cooperative, no depression, no anxiety. Results - Labs Reviewed. Assessment and Plan (1) Primary malignant neuroendocrine tumor of pancreas Problem details: 1. Presented with progressive weight loss, abdominal indigestion and fatigue for 1-2 years. Innumerable multiple liver lesions and a pancreatic head mass identifed on CT abdomen and pelvis on 04/28/2018. PET 05/10/2018: liver lesion, bone mets in L4 vertebra and pelvis, ?pancreatic head lesion. CT guided liver bx: neuroendocrine carcinoma, likely from pancreatic primary Assessment: I reviewed the PET scan with the patient. The PET scan showed multiple liver metastasis as well as metastasis affecting L4 at the pelvic bone. I also reviewed the pathology report from the liver biopsy. The biopsy sample showed well-differentiated neuroendocrine tumor, grade 2 (G2). 4-6 mitosis per 10 high-powered carmona, Ki 67 index of 15-20%, no loss of expression of mismatch repair enzymes. Clinically, it is stage IV (T2 Nx M1c). I do not think there is any clear evidence of pancreatic hormone production. Plan: 1. MRI Lumbar Spine 2. Second opinion [facility] 3. Referral to Dr. Kelsey Freire for evaluation of possible liver-directed therapy. 4. Chromogranin A, serum. 5. Urine HIAA, 24 hour 6. Pre-auth: Octreotide LAR 30 mg im monthly 7. RTC in 2 weeks for follow up visit with me (2) Diabetes mellitus, type 2 Assessment and Plan: Being followed by Dr. Dominic Mccabe at [facility]. (3) Hypertension Assessment and Plan: Being followed by Dr. Dominic Mccabe at [facility].
[2018-05-25 11:36] VITALS: BP 116/71; PULSE 83; RESP 16; TEMP 37.1; O2SAT 97
--- NOTE | 2018-05-30 09:10 | PC.NURSE ---
PATH PROGRESS: Spoke with Bao Trent from [facility] who informed me that the OmniSeq results should be available next week. He will email Jenise and Jackelyn with the results.
[2018-06-05 16:22] LABS: Chromogranin A, Serum 32993 ng/mL (25-140)
--- NOTE | 2018-06-13 08:41 | ONC.SCHED ---
Per Rodolfo Snyder @ [facility] [employer] / no authorization needed for chemo.
--- NOTE | 2018-06-13 09:11 | ONC.SCHED ---
Called cell # (home [phone]) to inform that chemo does not require authorization and we should be good for 06/15 start date. Gave Haritha copy of the order from Dr. Billingsley. She will determine/clarify whether Sandostatin LAR Depot or Somatuline Depot will be administered.
--- NOTE | 2018-06-15 10:16 | P.PNONC_ITS ---
PN -Subjective Interval history: He is now eating small portions multiple times. He reports no sweating, no fever, no abdominal pain, no diarrhea, no rashes and no acid reflex. He is still loosing weight. Patient was seen at [facility] for second opinion. Chely Bobby saw the patient and recommend Dotatate PET scan to complete staging and for evaluation of eligibility for future treatment with PRRT. Patient also was evaluated by Dr. Kelsey Freire at the [facility]. No surgical indication at this moment. Oncology History: Kali Landeros is a 62 year old male with medical problems most notable for diabetes, hypertension, and hypercholesterolemia. He endorses 1-2 years of indigestion, fatigue and weight loss. His weight decreased from 210 lb to 168 lb over 1-2 years ago. Patient went to see his primary care provider Dr. Dominic Mccabe. An ultrasound study on 04/20/2018 showed showed diffuse heterogeneity of the liver with a nodular appearance suspicious for metastatic disease. On CT scan of the abdomen and pelvis on 04/28/2018 showed innumerable peripherally enhancing mass lesions throughout the liver consistent with metastatic disease as well as hypo-enhancing pancreatic mass measuring 3.5 x 1.7 x 3.8 cm in dimension within the head and body with associated distal pancreatic duct dila tion and atrophy as well as encasement of the left gastric artery and splenic vein. CT scan of the chest on 05/01/2018 showed no evidence of pulmonary metastatic disease. Tumor markers obtained on 05/01/2018 showed CEA 1.5 ng/ml, CA 19-9 63 U/ml, AFP 26.1 ng/ml. Other labs showed sodium 132, potassium 5.1, chloride 96, glucose 232, BUN 15, creatinine 0.82, calcium 9.1. Patient then was referred to Oncology for further evaluation and treatment. I saw the patient on 05/05/2018. On 05/09/2018 patient underwent port placement. On 05/11/2018 patient underwent PET scan. The PET scan showed a large mass in the posterior segment of the right hepatic lobe demonstrating abnormal FDG activity consistent with metastasis. Innumerable small liver lesions also has increased FDG activity consistent with metastasis. The pancreatic mass described on the comparison diagnostic CT scan is not well visualized on PET scan. There is mildly increased FDG activity in the area of the pancreatic head suspicious for primary neoplasm. There are foci of increased uptake in the L4 vertebral body and bilateral iliac bones. These changes suspicious for osseous metastasis. On 05/12/2018, patient underwent CT-guided liver core needle biopsy. The biopsy sample showed well-differentiated neuroendocrine tumor, grade 2 (G2). 4-6 mitosis per 10 high-powered carmona, Ki 67 index of 15-20%, no loss of expression of mismatch repair enzymes. - Patient Self-Reported Symptoms SR Constitution: Weight loss/gain SR Gastrointestinal issues: Change in bowel pattern, Constipation, Abdominal pain SR Genitourinary issues: Frequent urination - Additional ROS All systems PM: reviewed and no additional remarkable complaints except as stated Home Medications and Allergies Home Medications Medication Instructions Recorded Confirmed Type aspirin 81 mg tablet,delayed 81 mg PO DAILY 05/03/18 05/12/18 History release atorvastatin 40 mg tablet 40 mg PO DAILY 05/03/18 05/12/18 History lisinopril 10 6.25 tab PO DAILY 05/03/18 05/12/18 History mg-hydrochlorothiazide 12.5 mg tablet metformin ER 1,000 mg 1,000 mg PO BID 05/03/18 05/12/18 History tablet,extended release 24hr docusate sodium [Colace] 100 mg PO BID #14 cap 05/09/18 05/12/18 Rx oxycodone 5 mg PO Q4-6H PRN #14 tab 05/09/18 05/12/18 Rx Allergies Allergy/AdvReac Type Severity Reaction Status Date / Time No Known Drug Allergies Allergy Verified 05/12/18 08:38 Exam Vital signs: Last Vital Signs Temp 98.0 F 06/15/18 10:25 Pulse 80 06/15/18 10:25 Resp 16 06/15/18 10:25 BP 112/67 06/15/18 10:25 Pulse Ox 98 06/15/18 10:25 ECOG 1 Narrative: Constitutional: WDWN, NAD, thin, well groomed, pleasant and cooperative, accompanied by his HEENT: NCAT, EOMI, PERRLA, anicteric sclera, no hearing difficulty; Neck: Supple, symmetrical, and tracheal midline; No palpable thyromegaly and no palpable lymph nodes. Respiratory: No use of accessory muscles. CTAB, no wheezes or rales or rubs. Cardiovascular: RRR, S1 and S2 normal, no murmurs gallops or rubs. No JVD. Abdomen: Soft, nontender, non-distended, bowel sounds normal. Liver palpable 5 cm below costal margin at [facility]. No spenomegaly. Lower extremities: No palpable edema. Lymphatic: no palpable lymph nodes in the neck, axillae, or groins. Neurological: Awake and alert and oriented x3. CN II-XII grossly intact. No focal motor or sensory deficit. Psychiatric: Good judgment, good insight, normal affect, normal thought process, cooperative, no depression, no anxiety Results - Labs Laboratory Last Values Chromogranin A 72969 ng/mL (25-140) H 05/30/18 13:03 Ref Test (Refrig) 05/30/18 13:12 Assessment and Plan (1) Primary malignant neuroendocrine tumor of pancreas Problem details: 1. Presented with progressive weight loss, abdominal indigestion and fatigue for 1-2 years. Innumerable multiple liver lesions and a pancreatic head mass identifed on CT abdomen and pelvis on 04/28/2018. PET 05/10/2018: liver lesion, bone mets in L4 vertebra and pelvis, ?pancreatic head lesion. CT guided liver bx: neuroendocrine carcinoma, likely from pancreatic primary Assessment: I reviewed the PET scan with the patient. The PET scan showed multiple liver metastasis as well as metastasis affecting L4 and the pelvic bone. I also reviewed the pathology report from the liver biopsy. The biopsy sample showed well-differentiated neuroendocrine tumor, grade 2 (G2). 4-6 mitosis per 10 high-powered carmona, Ki 67 index of 15-20%, no loss of expression of mismatch repair enzymes. Clinically, it is stage IV (T2 Nx M1c). I do not think there is any clear evidence of pancreatic hormone production. At [facility], [id number] Dotatate PET was recommended for evaluation of possible treatment with PRRT in the future. Chely Bobby at [facility] thought that it would be ideal to hold off on Octreotide therapy before the Dotatate PET scan, but can be arranged around the injection of Octreotide if patient insisted to get started. Patient and his in fact are very eager to start Octreotide, despite my explanation about possible interference with the scan. They understand the possible interference. Plan: 1. Ok to proceed to Cycle 1 day 1 Octreotide 30 mg injection today. 2. Follow up with [facility] for Octreodide Scan 3. RTC in 4 weeks for follow up visit and Cycle 2 Octreotide. (2) Diabetes mellitus, type 2 Assessment and Plan: Being followed by Dr. Dominic Mccabe at [facility]. (3) Hypertension Assessment and Plan: Being followed by Dr. Dominic Mccabe at [facility].
[2018-06-15 10:25] VITALS: BP 112/67; PULSE 80; RESP 16; TEMP 36.7; O2SAT 98
[2018-06-15] MEDS: [UNRECOGNIZED DRUG - OTHER] IM (11:14)
--- NOTE | 2018-06-15 13:14 | ONC.NAV ---
*Pt received a Chemo Quilt today.
--- NOTE | 2018-06-26 13:18 | ONC.NAV ---
Description: Letter for pt's employer Activity: Pt's called and requested a letter for pt to provide to his employer that states his current medical status, and that he cannot return to work at this time. [employer] reviewed pt's chart and wrote the requested letter. will come by later today to p/u. No additional needs indicated at this time.
--- NOTE | 2018-07-20 08:19 | ONC.PN ---
PN -Subjective Interval history: Patient went to [facility] and underwent mid body gallium 68 DOTATE PET-CT on 07/13/2018. The scan showed pancreatic DOTATE uptake consistent with somatostatin receptor positive primary pancreatic mass, extensive liver metastasis, small keisha metastasis in the upper abdomen and cardiophrenic space, diffuse osseous metastasis throughout the spine, ribs, calvarium, scapula, sternum and pelvis. Patient presents here today for discussion of the results as well as the injection of octreotide. Clinically the patient has been complaining chest pain. Patient described the chest pain happened a couple of days ago and is located across the lower chest. And today the pain seems to be confined to the left chest. No shortness of breath. Patient's mentioned that patient has been feeling significantly tired recently. He denies any hot flashes. No fever and no chills. No diarrhea no constipation. Oncology History: Kali Landeros is a 62 year old male with medical problems most notable for diabetes, hypertension, and hypercholesterolemia. He endorses 1-2 years of indigestion, fatigue and weight loss. His weight decreased from 210 lb to 168 lb over 1-2 years ago. Patient went to see his primary care provider Dr. Dominic Mccabe. An ultrasound study on 04/20/2018 showed showed diffuse heterogeneity of the liver with a nodular appearance suspicious for metastatic disease. On CT scan of the abdomen and pelvis on 04/28/2018 showed innumerable peripherally enhancing mass lesions throughout the liver consistent with metastatic disease as well as hypo-enhancing pancreatic mass measuring 3.5 x 1.7 x 3.8 cm in dimension within the head and body with associated distal pancreatic duct dilation and atrophy as well as encasement of the left gastric artery and splenic vein. CT scan of the chest on 05/01/2018 showed no evidence of pulmonary metastatic disease. Tumor markers obtained on 05/01/2018 showed CEA 1.5 ng/ml, CA 19-9 63 U/ml, AFP 26.1 ng/ml. Other labs showed sodium 132, potassium 5.1, chloride 96, glucose 232, BUN 15, creatinine 0.82, calcium 9.1. Patient then was referred to Oncology for further evaluation and treatment. I saw the patient on 05/05/2018. On 05/09/2018 patient underwent port placement. On 05/11/2018 patient underwent PET scan. The PET scan showed a large mass in the posterior segment of the right hepatic lobe demonstrating abnormal FDG activity consistent with metastasis. Innumerable small liver lesions also has increased FDG activity consistent with metastasis. The pancreatic mass described on the comparison diagnostic CT scan is not well visualized on PET scan. There is mildly increased FDG activity in the area of the pancreatic head suspicious for primary neoplasm. There are foci of increased uptake in the L4 vertebral body and bilateral iliac bones. These changes suspicious for osseous metastasis. On 05/12/2018, patient underwent CT-guided liver core needle biopsy. The biopsy sample showed well-differentiated neuroendocrine tumor, grade 2 (G2). 4-6 mitosis per 10 high-powered carmona, Ki 67 index of 15-20%, no loss of expression of mismatch repair enzymes. - Patient Self-Reported Symptoms SR Constitution: Weight loss/gain SR Gastrointestinal issues: Change in bowel pattern, Constipation, Abdominal pain SR Genitourinary issues: Frequent urination - Additional ROS All systems PM: reviewed and no additional remarkable complaints except as stated Home Medications and Allergies Home Medications Medication Instructions Recorded Confirmed Type aspirin 81 mg tablet,delayed 81 mg PO DAILY 05/03/18 07/20/18 History release atorvastatin 40 mg tablet 40 mg PO QPM 05/03/18 07/20/18 History metformin ER 1,000 mg 1,000 mg PO BID 05/03/18 07/20/18 History tablet,extended release 24hr oxycodone 5 mg PO Q4-6H PRN #14 tab 05/09/18 07/20/18 Rx lidocaine-prilocaine 1 applic TOPICAL DIRECTED 06/21/18 07/20/18 History lisinopril-hydrochlorothiazide 0.5 tab PO DAILY 06/21/18 07/20/18 History ondansetron 4 mg PO TID-QID PRN #20 tab 06/21/18 07/20/18 Rx docusate sodium [Colace] 100 mg PO BID PRN 07/20/18 07/20/18 History Allergies Allergy/AdvReac Type Severity Reaction Status Date / Time No Known Drug Allergies Allergy Verified 06/21/18 16:19 Exam Vital signs: Last Vital Signs Temp 98.6 F 07/20/18 10:08 Pulse 79 07/20/18 10:08 Resp 18 07/20/18 10:08 BP 105/65 07/20/18 10:08 Pulse Ox 98 07/20/18 10:08 ECOG 1 Narrative: Constitutional: WDWN, NAD, thin, well groomed, pleasant and cooperative, accompanied by his HEENT: NCAT, EOMI, PERRLA, anicteric sclera, no hearing difficulty; Neck: Supple, symmetrical, and tracheal midline; No palpable thyromegaly and no palpable lymph nodes. Respiratory: No use of accessory muscles. CTAB, no wheezes or rales or rubs. Cardiovascular: S1 and S2 normal, 2/6 SM at aortic valve. Frequent pre-mature beats heard. Abdomen: Soft, nontender, non-distended, bowel sounds normal. Liver palpable 5 cm below costal margin at MCL. No spenomegaly. Lower extremities: No palpable edema. Lymphatic: no palpable lymph nodes in the neck, axillae Neurological: Awake and alert and oriented x3. CN II-XII grossly intact. No focal motor or sensory deficit. Psychiatric: Good judgment, good insight, normal affect, normal thought process, cooperative, no depression, no anxiety Results - Labs Laboratory Last Values Chromogranin A 78290 ng/mL (25-140) H 05/30/18 13:03 Ref Test (Refrig) 05/30/18 13:12 Laboratory Last Values WBC 9.7 X10^3/uL (4.5-11.0) 07/20/18 08:27 RBC 3.94 X10^6/uL (4.5-5.9) L 07/20/18 08:27 Hgb 11.5 g/dL (13.5-17.5) L 07/20/18 08:27 Hct 33.8 % (41-53) L 07/20/18 08:27 MCV 85.8 fL (80-100) 07/20/18 08:27 MCH 29.1 PG (26-34) 07/20/18 08:27 MCHC 33.9 % (30-36) 07/20/18 08:27 RDW 14.5 % (11.6-14.8) 07/20/18 08:27 Plt Count 285 X10^3/uL (150-400) 07/20/18 08:27 Neut % (Auto) 77.7 % (50-75) H 07/20/18 08:27 Lymph % (Auto) 11.3 % (25-40) L 07/20/18 08:27 [place] % (Auto) 10.4 % (3-14) 07/20/18 08:27 Eos % (Auto) 0.2 % (2-4) L 07/20/18 08:27 Baso % (Auto) 0.4 % (0-2) 07/20/18 08:27 Neut # (Auto) 7600 /uL (6071-4399) H 07/20/18 08:27 Lymph # (Auto) 1100 /uL (0136-5768) 07/20/18 08:27 [place] # (Auto) 1000 /uL (0-900) H 07/20/18 08:27 Eos # (Auto) 0 /uL (0-450) 07/20/18 08:27 Baso # (Auto) 0 /uL (0-100) 07/20/18 08:27 Sodium 130 mmol/L (137-145) L 07/20/18 08:27 Potassium 4.6 mmol/L (3.4-5.1) 07/20/18 08:27 Chloride 92 mmol/L (98-107) L 07/20/18 08:27 Carbon Dioxide 24 mmol/L (22-32) 07/20/18 08:27 BUN 22 mg/dL (9-20) H 07/20/18 08:27 Creatinine 0.80 mg/dL (0.66-1.25) 07/20/18 08:27 Estimated GFR > 60.0 mL/min (>60) 07/20/18 08:27 BUN/Creatinine Ratio 27.5 (6-22) H 07/20/18 08:27 Glucose 241 mg/dL (80-110) H 07/20/18 08:27 Calcium 8.9 mg/dL (8.4-10.2) 07/20/18 08:27 Total Bilirubin 0.7 mg/dL (0.2-1.3) 07/20/18 08:27 AST 41 IU/L (17-59) 07/20/18 08:27 ALT 39 IU/L (21-72) 07/20/18 08:27 Alkaline Phosphatase 303 U/L (38-126) H 07/20/18 08:27 Total Protein 7.3 g/dL (6.3-8.2) 07/20/18 08:27 Albumin 3.9 g/dL (3.5-5.0) 07/20/18 08:27 Globulin 3.4 g/dL (1.7-4.1) 07/20/18 08:27 Albumin/Globulin Ratio 1.1 (1.0-2.8) 07/20/18 08:27 Chromogranin A 37700 ng/mL (25-140) H 05/30/18 13:03 Ref Test (Refrig) 05/30/18 13:12 Assessment and Plan (1) Primary malignant neuroendocrine tumor of pancreas Assessment: 62 year old male presented with progressive weight loss, abdominal indigestion and fatigue for 1-2 years. Innumerable multiple liver lesions and a pancreatic head mass identified on CT abdomen and pelvis on 04/28/2018. PET 05/10/2018: liver lesion, bone mets in L4 vertebra and pelvis, ?pancreatic head lesion. CT guided liver biopsy. The biopsy sample showed well-differentiated neuroendocrine tumor, grade 2 (G2). 4-6 mitosis per 10 high-powered carmona, Ki 67 index of 15-20%, no loss of expression of mismatch repair enzymes. Clinically, it is stage IV (T2 Nx M1c). He was started on Octreotide 30 mg on 06/15/2018. He underwent DOTATE PET scan on 07/13/2018 at [facility]. While in the patient room, Dr. Savage Love called, who reviewed the DOTATE PET scan results with us. Patient apparently has a widely extensive metastasis involving pancreatic DOTATE uptake consistent with somatostatin receptor positive primary pancreatic mass, extensive liver metastasis, small keisha metastasis in the upper abdomen and cardiophrenic space, diffuse osseous metastasis throughout the spine, ribs, calvarium, scapula, sternum and pelvis. Dr. Wan recommended that continue the current treatment with octreotide once every month for another 3 months before proceeding with a CT scan of the chest abdomen pelvis for evaluation of the responses. If there is no responses, second line treatment with capecitabine with temazolamide is recommended. If the patient progresses again, patient then may be a good candidate for PRRT treatment. Plan: 1. Ok to proceed to Cycle 2 Octreotide 30 mg injection today. 2. RTC in 4 weeks for follow up visit and Cycle 3 Octreotide. CBC, CMP, CGA (2) Chest pain Assessment and Plan: Patient has been having chest pain for the last couple of days with seemingly confinement to the left chest this morning. Patient's also mentioned that the patient has been feeling very tired recently. Patient has history of hypertension and diabetes. On my physical examination premature beats were heard. We obtained a stat EKG and EKG showed frequent premature ventricular heart beats. I explained to the patient that there is a potential possibility of cardiac issues especially heart attack. Of note, the patient has a known cardiophrenic lymph node involvement that could also be the reason for the chest pain and the premature ventricular beats. I talked with the patient I would highly recommend that we send the patient to ER of to do a formal evaluation. Patient voiced understanding. (3) Diabetes mellitus, type 2 Assessment and Plan: Being followed by Dr. Dominic Mccabe at [facility]. (4) Hypertension Assessment and Plan: Being followed by Dr. Dominic Mccabe at [facility].
[2018-07-20 10:05] LABS: Add Manual Diff / Slide Review NO; Basophils Absolute Auto 0 /uL (0-100); Basophils Percent Auto 0.4 % (0-2); Eosinophils Absolute Auto 0 /uL (0-450); Eosinophils Percent Auto 0.2 % (2-4); Hematocrit 33.8 % (41-53); Hemoglobin 11.5 g/dL (13.5-17.5); Lymphocytes Absolute Auto 1100 /uL (1100-4500); Lymphocytes Percent Auto 11.3 % (25-40); Mean Corpuscular HGB Conc 33.9 % (30-36); Mean Corpuscular Hemoglobin 29.1 PG (26-34); Mean Corpuscular Volume 85.8 fL (80-100); Monocytes Absolute Auto 1000 /uL (0-900); Monocytes Percent Auto 10.4 % (3-14); Neutrophils Absolute Auto 7600 /uL (1500-7000); Neutrophils Percent Auto 77.7 % (50-75); Platelet Count 285 X10^3/uL (150-400); Red Blood Cell Count 3.94 X10^6/uL (4.5-5.9); Red Cell Distribution Width 14.5 % (11.6-14.8); White Blood Cell Count 9.7 X10^3/uL (4.5-11.0)
[2018-07-20 10:08] VITALS: BP 105/65; PULSE 79; RESP 18; TEMP 37; O2SAT 98
[2018-07-20 10:15] LABS: Alanine Aminotransferase 39 IU/L (21-72); Albumin 3.9 g/dL (3.5-5.0); Albumin Globulin Ratio 1.1 (1.0-2.8); Alkaline Phosphatase 303 U/L (38-126); Aspartate Aminotransferase 41 IU/L (17-59); BUN Creatinine Ratio 27.5 (6-22); Bilirubin Total 0.7 mg/dL (0.2-1.3); Blood Urea Nitrogen 22 mg/dL (9-20); Calcium 8.9 mg/dL (8.4-10.2); Carbon Dioxide 24 mmol/L (22-32); Chloride 92 mmol/L (98-107); Estimated Glomerular Filt Rate > 60.0 mL/min (>60); Globulin 3.4 g/dL (1.7-4.1); Glucose 241 mg/dL (80-110); HEMOLYSIS < 15 (0-50); Potassium 4.6 mmol/L (3.4-5.1); Sodium 130 mmol/L (137-145); Total Protein 7.3 g/dL (6.3-8.2)
[2018-07-20] MEDS: [UNRECOGNIZED DRUG - OTHER] IM (11:01)
--- NOTE | 2018-07-20 11:18 | PC.NURSE ---
Per Dr Billingsley's request, pt wheeled to ER via wheelchair by Helena CRANDALL for c/o chest pain. Report given to Janet MATERIALS MANAGEMENT CLERK by Ayana ethologist. Pt not in visible distress. Vitals stable. accompanied patient.
--- NOTE | 2018-07-20 11:23 | PC.NURSE ---
Patient transferred to ER in wheelchair due to chest pain per recommendation of Dr. Billingsley. Patient escorted from ER entry by triage nurse Janet. EKG result document delivered to her and informed that patient accessed per port. Patient tolerated transfer without problem. He is accompanied by his Elissa.
[2018-07-26 14:40] LABS: Chromogranin A, Serum 14800 ng/mL (25-140)
--- NOTE | 2018-08-03 16:28 | PC.NURSE ---
Toña from [facility] requested dates and dosages of octreotide administration. Called her at [phone] and left a voice message with this information. She then called back asking for a fax of the administration record along with additional records from patient's visits here. Let [place] know that info needs to be faxed to [phone]. She is submitting the request to medical records.
--- NOTE | 2018-08-14 09:17 | ONC.SCHED ---
Message on voicemail 08/14/18 from Mrs. Landeros. [facility]
--- NOTE | 2018-10-04 10:00 | ONC.MSW ---
Description: T/C from [facility] Activity: Hospice called to request ONC medical records. Pt's PCP and [facility] are referring pt to hospice, they decline a closure appt. with Dr. Billingsley and prefer to transition directly to hospice. [employer] JEWELRY faxed the records as requested.
--- NOTE | 2018-10-25 13:40 | ONC.MSW ---
*Sent bereavement card.
== END ==
PROVIDERS: PCP Family Medicine; Visit Provider Internal Medicine Hematology & Oncology
DX: C7A.8 Other malignant neuroendocrine tumors (principal); C78.7 Secondary malignant neoplasm of liver and intrahepatic bile duct; C79.51 Secondary malignant neoplasm of bone; I10 Essential (primary) hypertension; E11.9 Type 2 diabetes mellitus without complications; Z79.84 Long term (current) use of oral hypoglycemic drugs
CPT/HCPCS: 36415; 36592; 80053; 83497; 85025; 86316; 93005; 96401; 96402; 96523; 99204; 99214; 99215; J2353

== ENCOUNTER → 2018-10-10 11:58 | Outpatient (CLI) | payer OTHER, SELFPAY ==
--- NOTE | 2018-10-10 | DI.US.S_ITS ---
PROCEDURE: US PARACENTESIS INDICATIONS: ASCITIES TECHNIQUE: The indications, alternatives, benefits, risks, and complications of the procedure were explained to the patient. Written informed consent was obtained and placed in the chart. The abdomen and pelvis were examined sonographically, and an appropriate site was chosen for paracentesis. The skin was prepared and draped in the usual sterile fashion, and 1% lidocaine was infiltrated from the skin down through the peritoneal surface. A 19-gauge catheter-covered needle was then introduced into the peritoneal space, the catheter was advanced and the needle was withdrawn, and thereafter peritoneal fluid was withdrawn. The catheter was then removed and a dressing was applied. The fluid was discarded if the clinician did not order diagnostic testing of the fluid. COMPARISON: None. FINDINGS: Access site: Right lower quadrant Needle: One-Step centesis catheter with introducer needle. Fluid volume and description: 5000 cc of serous fluid. Fluid sent for diagnostic testing: Not requested Medications: 1% lidocaine for local anaesthesia. Complications: None. IMPRESSION: Successful ultrasound-guided paracentesis. Dictated by: Nelson Levi M.D. on 10/10/2018 at 16:12 Approved by: Nelson Levi M.D. on 10/10/2018 at 16:13
[2018-10-10 12:25] LABS: Platelet Count 516 X10^3/uL (150-400)
[2018-10-10 12:28] LABS: INR 1.3 (0.9-1.3); Prothrombin Time 14.8 SECONDS (10.1-12.7)
== END ==
PROVIDERS: PCP Family Medicine; Visit Provider Family Medicine
DX: C25.9 Malignant neoplasm of pancreas, unspecified (principal); R18.8 Other ascites
CPT/HCPCS: 36415; 49083; 85049; 85610